=== PATIENT | female | born 1950 | race African-American/Black ===

== ENCOUNTER 2016-10-11 05:39 | Outpatient (CLI) | payer MEDICARE, MEDICAID ==
[~2016-10-11] VITALS: Ht 176.5 cm; Wt 69.9 kg
[~2016-10-11 05:39] MED LIST: ALN70T PO; AML5T; AMLO10TA82 PO; ASP81TEC PO; ASPIRIN; CHANTIX; CLCX200C; FEXO60TA PO; HCT25T; HCT25T PO; KCL10CCR; LNS30CCR; LORA10TA7 PO; MELO-195 PO; MNTL10T PO; NFPRILOC40 PO; POTA10CA43 PO; SMV20T PO; TRAM50TA2 PO; ZLP10T PO; ZLP5T PO
[2016-10-11] MEDS ORDERED: METO50TA2 PO (11:01)
[2016-10-11] MEDS ORDERED: METH2.5T PO (11:01)
[2016-10-11] MEDS ORDERED: BENA20TA2 PO (11:01)
[2016-10-11] MEDS ORDERED: BACL10TA PO (11:01)
== END 2016-10-11 11:03 ==
LOC: PREOP 05:39
PROVIDERS: ATTEND Internal Medicine
DX: Z01.818 Encounter for other preprocedural examination (principal); Z12.11 Encounter for screening for malignant neoplasm of colon

== ENCOUNTER 2016-10-13 06:34 | Day surgery (SDC) | payer MEDICARE, MEDICAID ==
[~2016-10-13] VITALS: Ht 176.5 cm; Wt 69.9 kg
[~2016-10-13 06:34] MED LIST changes: +BACL10TA PO; +BENA20TA2 PO; +METH2.5T PO; +METO50TA2 PO
--- OUTSIDE RECORDS SUMMARY | 2016-10-13 06:37 | XMS REPORT | Continuity of Care Document ---
Author Author [facility] Organization [facility] Address Unknown Phone Unavailable Allergies Active Description Code Type Severity Reaction Onset Reported/Identified Relationship to Patient Clinical Status Yes codeine [id number] Drug Allergy Mild CHEST PAIN 09/15/2008 Yes hydrocodone [id number] Drug Allergy Unknown causes elevated 10/11/2016 Medications Problems Date Dx Coded Attending Type Code Diagnosis Diagnosed By 10/26/2010 Ot 726.19 10/26/2010 Ot 727.61 10/26/2010 Ot 727.89 10/26/2010 Ot 733.92 11/23/2010 Ot 577.0 11/23/2010 Ot 577.8 11/23/2010 Ot 787.91 11/23/2010 Ot 789.00 09/24/2011 Ot 577.0 ACUTE PANCREATITIS 09/24/2011 Ot 577.8 PANCREATIC DISEASE NEC 09/24/2011 Ot 787.91 DIARRHEA 09/24/2011 Ot 789.00 ABDOMINAL PAIN, UNSPECIFIED SITE 12/30/2012 REYNA BILLINGS MD Ot 272.4 HYPERLIPIDEMIA NEC/NOS 12/30/2012 REYNA BILLINGS MD Ot 288.50 LEUKOCYTOPENIA, UNSPECIFIED 12/30/2012 REYNA BILLINGS MD Ot 401.9 HYPERTENSION NOS 12/30/2012 REYNA BILLINGS MD Ot 716.90 ARTHROPATHY NOS-UNSPEC 12/30/2012 REYNA BILLINGS MD Ot 724.5 BACKACHE NOS 12/30/2012 REYNA BILLINGS MD Ot V58.69 OTH MED,LT,CURRENT USE 06/05/2013 ALLIE FERRER MD Ot 401.9 HYPERTENSION NOS 06/05/2013 ALLIE FERRER MD Ot 724.1 PAIN IN THORACIC SPINE 06/05/2013 ALLIE FERRER MD Ot 786.50 CHEST PAIN NOS 06/05/2013 ALLIE FERRER MD Ot V58.69 OTH MED,LT,CURRENT USE 07/15/2013 ELLA GAY FACC, ALI FACP CCDS Ot 272.0 PURE HYPERCHOLESTEROLEM 07/15/2013 ELLA GAY FAC, ALI FACP CCDS Ot 401.9 HYPERTENSION NOS 07/15/2013 ELLA GAY FAC, [facility] FACP CCDS Ot 414.01 CORONARY ATHEROSCLEROSIS OF [place] CORON 07/15/2013 ELLA GAY FAC, ALI FACP CCDS Ot 414.4 CORONARY ATHEROSCLEROSIS DUE TO [place] 07/15/2013 ELLA GAY [facility] CCDS Ot 786.50 CHEST PAIN NOS 07/15/2013 ELLA GAY [facility], [facility] CCDS Ot V58.69 OT MED,LT,CURRENT USE 01/12/2015 Ot V15.89 01/12/2015 Ot V76.11 01/12/2015 Ot 733.90 01/12/2015 Ot V82.81 01/12/2015 Ot 599.0 01/12/2015 Ot 719.41 01/12/2015 Ot 786.2 01/12/2015 Ot 727.61 01/12/2015 Ot V72.81 01/12/2015 Ot V74.8 01/12/2015 Ot 433.10 01/12/2015 Ot V76.12 01/12/2015 Ot 722.52 01/12/2015 Ot 789.01 01/12/2015 Ot 722.52 01/12/2015 Ot 719.45 01/12/2015 Ot 729.5 01/12/2015 Ot V45.89 01/12/2015 JONAH GAY, OCTAVIA Braun Ot V76.12 01/12/2015 JONAH GAY, OCTAVIA Braun Ot 719.45 01/12/2015 Ot 288.50 01/12/2015 JONAH GAY, OCTAVIA Braun Ot 344.40 01/12/2015 JODIE GAY, CLARE Ot 413.9 01/12/2015 JODIE GAY, CLARE Ot 785.0 01/12/2015 JODIE GAY, CLARE Ot 786.59 01/12/2015 JODIE GAY, CLARE Ot 794.31 01/12/2015 OCTAVIA MCKENZIE MD Ot V76.12 02/22/2015 OCTAVIA MCKENZIE MD Ot G45.9 03/02/2015 OCTAVIA MCKENZIE MD Ot G45.9 10/11/2016 Ot 433.10 CAROTID ARTERY OCCLUSION W O CEREBRAL IN 10/11/2016 Ot V76.12 OTH SCREEN MAMMO-MALIGN NEOPLASM OF [place] 10/11/2016 Ot 722.52 LUMB/LUMBOSAC DISC DEGEN 10/11/2016 Ot 789.01 ABDOMINAL PAIN, RIGHT UPPER QUADRANT 10/11/2016 Ot 722.52 LUMB/LUMBOSAC DISC DEGEN 10/11/2016 Ot 719.45 JOINT PAIN-PELVIS 10/11/2016 Ot 729.5 PAIN IN LIMB 10/11/2016 Ot V45.89 POSTSURGICAL STATES NEC 10/11/2016 OCTAVIA MCKENZIE MD Ot V76.12 OTH SCREEN MAMMO-MALIGN NEOPLASM OF [place] 10/11/2016 OCTAVIA MCKENZIE MD Ot 719.45 JOINT PAIN-PELVIS 10/11/2016 Ot 288.50 LEUKOCYTOPENIA, UNSPECIFIED 10/11/2016 OCTAVIA MCKENZIE MD Ot 344.40 MONOPLEGIA UPPER LIMB AFFECTING UNSPECIF 10/11/2016 CLARE FELICIANO MD Ot 413.9 ANGINA PECTORIS NEC/NOS 10/11/2016 CLARE FELICIANO MD Ot 785.0 TACHYCARDIA NOS 10/11/2016 CLARE FELICIANO MD Ot 786.59 CHEST PAIN NEC 10/11/2016 CLARE FELICIANO MD Ot 794.31 ABNORM ELECTROCARDIOGRAM 10/11/2016 OCTAVIA MCKENZIE MD Ot V76.12 OTH SCREEN MAMMO-MALIGN NEOPLASM OF [place] 10/11/2016 OCTAVIA MCKENZIE MD Ot G45.9 TRANSIENT CEREBRAL ISCHEMIC ATTACK, UNSP 10/11/2016 OCTAVIA MCKENZIE MD Ot Z12.31 ENCNTR SCREEN MAMMOGRAM FOR MALIGNANT NE 10/11/2016 Ot 288.50 LEUKOCYTOPENIA, UNSPECIFIED 10/11/2016 OCTAVIA MCKENZIE MD Ot Z12.31 ENCNTR SCREEN MAMMOGRAM FOR MALIGNANT NE Procedures Results Encounters ACCT No. Visit Date/Time Discharge Status Pt. Type Provider Facility Loc./Unit Complaint [id number] 10/11/2016 05:39:00 2016 11:03:00 DIS Outpatient PIERRE EUBANKS MD [facility] PREOP SCREENING [id number] 01/12/2015 10:30:00 2014 23:59:59 CLS Outpatient OCTAVIA MCKENZIE MD [facility] RAD TRANSIENT CEREBRAL ISCHEMIA [id number] 12/02/2013 08:52:00 2013 23:59:59 CLS Outpatient OCTAVIA MCKENZIE MD [facility] RAD SCREENING [id number] 07/15/2013 06:44:00 2013 14:00:00 DIS Outpatient ELLA GAY FACC, EFFIE MEDINA CCDS [facility] CATH CP,POS STRESS TEST,HTN,HLP [id number] 06/18/2013 08:57:00 2013 23:59:59 CLS Outpatient CLARE FELICIANO MD [facility] CARD ANGINA,ABN EKG [id number] 06/05/2013 18:35:00 2013 20:12:00 DIS Emergency ALLIE FERRER MD [facility] ER DEHYDRATION [id number] 04/18/2013 08:16:00 2013 23:59:59 CLS Outpatient OCTAVIA MCKENZIE MD [facility] RAD MONOPARESIS-ARM [id number] 10/01/2012 13:56:00 2012 00:01:00 DIS Outpatient REYNA BILLINGS MD [facility] ONC [id number] 11/22/2012 09:01:00 2012 23:59:59 CLS Outpatient OCTAVIA MCKENZIE MD [facility] RAD PAIN IN JOINT [id number] 11/18/2012 09:12:00 2012 23:59:59 CLS Outpatient OCTAVIA MCKENZIE MD [facility] RAD SCREENING [id number] 10/18/2016 10:15:00 PEN Preadmit OCTAVIA MCKENZIE MD [facility] RAD SCREENING [id number] 10/13/2016 08:00:00 PEN Preadmit PIERRE EUBANKS MD [facility] ENDO SCREENING [id number] 01/12/2015 10:30:00 Document Registration [id number] 01/12/2015 10:30:00 Document Registration [id number] 01/12/2015 10:29:00 Document Registration [id number] 01/12/2015 10:29:00 Document Registration [id number] 12/31/2012 00:00:00 Document Registration [id number] 10/19/2011 10:28:00 Document Registration [id number] 10/11/2011 09:36:00 Document Registration [id number] 06/27/2011 08:38:00 Document Registration [id number] 05/04/2011 10:47:00 Document Registration [id number] 10/20/2010 08:59:00 Document Registration [id number] 08/25/2010 11:49:00 Document Registration [id number] 12/16/2009 10:03:00 Document Registration
[2016-10-13] MEDS ORDERED: 1/2 NS IV SOLUTION 1,000 ML IV STA (07:14)
[2016-10-13] MEDS ORDERED: fentaNYL INJECTION 100 MCG/2 ML AMP IVP PRN (07:15)
[2016-10-13] MEDS ORDERED: LIDOCAINE JELLY 2% (XYLOCAINE) 5 ML TUBE MM PRN (07:15)
[2016-10-13] MEDS ORDERED: D5 LR IV SOLUTION 0 ML IV ONE (07:15)
[2016-10-13] MEDS ORDERED: MIDAZOLAM 2 MG/2 ML (VERSED) VIAL IVP PRN (07:15)
[2016-10-13 07:30] VITALS: BP 184/98
[2016-10-13] MEDS ORDERED: 1/2 NS IV SOLUTION 1,000 ML IV ONE (07:31)
[2016-10-13] MEDS ORDERED: MIDAZOLAM 2 MG/2 ML (VERSED) VIAL ONE (07:43)
[2016-10-13] MEDS ORDERED: LIDOCAINE JELLY 2% (XYLOCAINE) 5 ML TUBE ONE (07:43)
[2016-10-13] MEDS ORDERED: fentaNYL INJECTION 100 MCG/2 ML AMP ONE (07:43)
--- NOTE | 2016-10-13 07:50 | Pre-Op Note & Conscious Sedat ---
Pre-Operative Progress Note H&P Reviewed The H&P was reviewed, patient examined and no changes noted. Date H&P Reviewed: Oct 13, 2016 Time H&P Reviewed: 07:50 Conscious Sedation Pre-Proced ASA Class: 2 Airway Mallampati Classification: ([place] appropriate class) I. II. III, IV Lungs Heart ASA score ASA 1: a normal healthy patient ASA 2: a patient with a mild systemic disease (mid diabetes, controlled hypertension, obesity ASA 3: a patient with a severe systemic disease that limits activity (angina , COPD, prior Myocardial infarction) ASA 4: a patient with an incapacitating disease that is a constant threat to life (CHF, renal failure) ASA 5: a moribund patient not expected to survive 24 hrs. (ruptured aneurysm) ASA 6: a declared brain patient whose organs are being harvested. For emergent operations, add the letter E after the classification Grade 2 Sedation Plan: Analgesia, Amnesia, Plan communicated to team members, Discussed options with patient/fam, Discussed risks with patient/fam Note The patient is an appropriate candidate to undergo the planned procedure, sedation, and anesthesia. The patient immediately re-assessed prior to indication. PIERRE EUBANKS MD Oct 13, 2016 07:50
[2016-10-13 08:30] VITALS: BP 157/84
[2016-10-13 09:00] VITALS: BP 179/91
--- NOTE | 2016-10-13 10:43 | HISTORY AND PHYSICAL ---
DATE OF ADMISSION: 10/13/2016 DICTATING PHYSICIAN: Dr. Velázquez REFERRING PHYSICIAN: Dr. Draper. INDICATION FOR THE PROCEDURE: Screening colonoscopy. Mrs. Keane is a 65-year-old white female, reporting that she did have one other colonoscopy over [address] Tejada. She does not recall any problems at that time. She does have some intermittent nausea with weight loss with reported history of bile duct stones apparently requiring ERCP and extraction sometime after having cholecystectomy several years ago. She denies history of peptic ulcer disease. She denies any bowel habit change and denies abdominal pain. PAST SURGICAL HISTORY: 1. Cholecystectomy. 2. Herniorrhaphy. 3. Right rotator cuff tear repair in [address] Mancini. 4. She has a past history of hypertension and underwent cardiac catheterization in 2013 that revealed only mild coronary disease and no other significant problems. 5. She also has a history of hyperlipidemia. MEDICATIONS: On admission include: 1. Dicyclomine 20 mg q.6 hours p.r.n. 2. fluticasone nasal spray 2 sprays both sides daily 3. Hydrochlorothiazide 25 mg daily 4. Lomotil 2.5 mg q.a.m. and p.r.n. diarrhea 5. Meloxicam 15 mg daily 6. methotrexate 4 tablets by mouth weekly 7. metoprolol 50 mg daily 8. omeprazole 40 mg daily 9. Potassium 10 mEq daily 10. Simvastatin 20 mg at h.s. 11. zolpidem 5 mg at bedtime p.r.n. insomnia PHYSICAL EXAMINATION: Reveals a white female, appears to be in no acute distress. VITAL SIGNS: Blood pressure 150/70, heart rate 66 and regular. HEENT EXAMINATION: Unremarkable. She is Mallampati class II oropharyngeal configuration. Pharynx reveals no evidence for exudate or erythema. Posterior pharynx. NECK: Reveals no JVD, adenopathy or bruits. CHEST: Clear. CV: Reveals a regular rate and rhythm without murmur, S3 or S4. ABDOMEN: Soft, supple without masses, organomegaly or tenderness. EXTREMITIES: Reveal no cyanosis, clubbing, or edema. ASSESSMENT: The patient is set-up for a screening colonoscopy on the 10/06/2016. Prep instructions were given and questions were answered. The patient was advised to hold meloxicam for at least 48 hours prior to the procedure. I thank you for the referral of this pleasant lady. Sincerely, Job ID: [id number] Dictated Date: 10/04/2016 08:41:00 Digester Operator Helper Date: 10/04/2016 11:33:59/tiffanie MORRISSEY
--- NOTE | 2016-10-13 17:48 | OPERATIVE REPORT ---
PROCEDURE PHYSICIAN: PIERRE EUBANKS DATE OF PROCEDURE: 10/13/2016 COLONOSCOPY SUMMARY: INDICATION FOR THE PROCEDURE: Screening colonoscopy. PROCEDURE: The patient was placed in the left lateral decubitus position. Prior to undergoing colonoscopy, digital rectal evaluation was performed. Anal sphincter tone was normal. The perianal reflex was intact. No abnormalities were noted to digital inspection of the anal canal or distal rectal vault. The colonoscope was then inserted into the rectum and under visualization, advanced to cecum. The cecum was identified by identification of the ileocecal valve the cecal strap. Photographic documentation was obtained. Careful inspection was made as colonoscope was withdrawn. FINDINGS: There was no evidence for internal or external hemorrhoids and the rectum was unremarkable. Several small sigmoid diverticulum were present. No other sigmoid colonic abnormalities were appreciated. There is no evidence for diverticulitis. The descending colon and splenic flexure were unremarkable. Present in the mid transverse colon was diminutive hyperplastic appearing polyp. It was biopsied and ablated, and submitted as for histopathology with no blood loss. The remainder of the transverse colon, hepatic flexure, the ascending colon and cecum were normal. ASSESSMENT: 1. Mild diverticular disease confined to the sigmoid colon was present, without evidence for diverticulitis. 2. One diminutive hyperplastic appearing polyp was removed from the transverse colon. No other abnormalities were noted. 3. As the patient reports no family history for colon cancer, would advocate consideration for repeat screening colonoscopy in 10 years as long as there are no surprises on histopathology report. I thank you for the referral of this pleasant lady. Sincerely, Job ID: [id number] Dictated Date: 10/13/2016 10:20:53 Assembler Tractor Date: 10/13/2016 17:42:50 / tiffanie
== END 2016-10-13 10:00 | disposition home or self-care (01) ==
LOC: ENDO 06:34
PROVIDERS: ATTEND Internal Medicine
DX: Z12.11 Encounter for screening for malignant neoplasm of colon (principal); K63.5 Polyp of colon; K57.30 Diverticulosis of large intestine without perforation or abscess without bleeding; I25.10 Atherosclerotic heart disease of native coronary artery without angina pectoris; I10 Essential (primary) hypertension; E78.5 Hyperlipidemia, unspecified; Z79.899 Other long term (current) drug therapy

== ENCOUNTER → 2016-10-23 | Outpatient (CLI) | payer MEDICARE, MEDICAID | LOC: RAD 08:55 | DX: Z12.31 Encounter for screening mammogram for malignant neoplasm of breast (principal) | CPT/HCPCS: 77067 ==

== ENCOUNTER → 2017-04-27 | Outpatient (CLI) | payer MEDICARE, MEDICAID ==
[~2017-04-27] MED LIST changes: +IOHEXOL 350 MG/ML 100 ML (OMNIPAQUE 350) VIAL IV ONE; +METO50TA15 PO; -METO50TA2 PO; +NS 100 ML (IVPB) BAG IV ONE
--- NOTE | 2017-04-27 10:02 | Diagnostic Imaging Report ---
PROCEDURE: CT abdomen and pelvis with contrast. TECHNIQUE: Multiple contiguous axial images were obtained through the abdomen and pelvis after administration of intravenous contrast. INDICATION: Left lower quadrant abdominal pain. COMPARISON: 10/11/2011 FINDINGS: Included portions of the lung bases show small micronodule in the lateral right base. This however is stable compared to 10/11/2011. CT ABDOMEN: Small bowel loops are nondistended. Normal appendix cannot be adequately identified, but there is no pericecal inflammation. The kidneys, adrenal glands, spleen, pancreas, and liver have a normal CT appearance. There is no loculated fluid collection, free fluid, nor free air within the abdomen. No abnormal mesenteric or retroperitoneal adenopathy is seen. There is mild calcified aortic atherosclerosis. Note is made of bulky calcifications at the origins of bilateral renal arteries. Bony structures show no acute abnormalities. CT PELVIS: Urinary bladder is grossly unremarkable. There is no loculated fluid collection, free fluid, or free air within the pelvis. No abnormal lymph nodes are identified. Bony structures show no acute abnormalities. Postsurgical changes of prior lumbosacral fusion are noted. IMPRESSION: No acute abnormalities within the abdomen or pelvis. Dictated by: Dictated on workstation # [id number]
== END ==
LOC: RAD 08:39
DX: R10.32 Left lower quadrant pain (principal)
CPT/HCPCS: 74177

== ENCOUNTER → 2017-05-21 | Outpatient (CLI) | payer MEDICARE, MEDICAID ==
[~2017-05-21] MED LIST changes: -IOHEXOL 350 MG/ML 100 ML (OMNIPAQUE 350) VIAL IV ONE; -NS 100 ML (IVPB) BAG IV ONE
--- NOTE | 2017-05-21 09:36 | Diagnostic Imaging Report ---
PROCEDURE: MRI lumbar spine. TECHNIQUE: Multiplanar, multisequence MRI of the lumbar spine was performed without contrast. INDICATION: Lower back pain with left leg pain. History of previous lumbar spinal surgery. COMPARISON: 10/19/2011. FINDINGS: Since the previous exam, there has been interval left-sided posterior fusion of L4 through S1. Anterior fusion hardware is also noted. Evaluation of the integrity of the hardware is suboptimal given MR modality and susceptibility artifact, but AP static alignment is maintained. Intervertebral disc spacer material is also noted at L4-L5 and L5-S1 and appears to be appropriately positioned. Evaluation of static alignment also demonstrates slight dextroscoliotic curvature epicentered at the L4 level. Vertebral body heights are maintained. There is moderate size Schmorl's node involving the inferior endplate of L3. Marrow signal is unremarkable. No acute fractures are seen. The visualized portions of distal cord are unremarkable. Conus terminates at approximately the T12-L1 level. No abnormal intrathecal filling defects are seen. Pre-and paravertebral soft tissue structures are unremarkable. Axial images demonstrate following: T12-L1: There is no large disc bulge or focal protrusion. There is no significant spinal canal or neuroforaminal stenosis. L1-L2: There is no large disc bulge or focal protrusion. There is no significant spinal canal or neuroforaminal stenosis. L2-L3: There is slight broad-based posterior disc bulge, eccentric to the left. As a result, there is minimal narrowing of the left neural foramen. Spinal canal and right neural foramen are unremarkable. L3-L4: There is broad-based posterior disc bulge and bilateral ligamentum flavum laxity and facet arthropathy. This has progressed since the previous exam. As a result, there is wfqonghw-wv-qqvvei spinal canal stenosis. There is also moderate narrowing of the bilateral neural foramina. L4-L5: There are posterior disc bulges which results in xgdg-co-ueoexqje narrowing of the bilateral neural foramen. Spinal canal however is unremarkable. L5-S1: There is no large disc bulge or focal protrusion. There is no significant spinal canal or neuroforaminal stenosis. IMPRESSION: 1. Multilevel degenerative changes of the lumbar spine, greatest at the L3-L4 level resulting in scwplfdg-jf-hbbyvq spinal canal stenosis. 2. Postsurgical changes of previous anterior and posterior fusion as described above. Again, evaluation of integrity of the hardware is suboptimal given MR modality and susceptibility artifact, but AP static alignment is maintained. 3. No evidence of acute fracture or dislocation of lumbar spine. Dictated by: Dictated on workstation # [id number]
== END ==
LOC: RAD 07:52
PROVIDERS: ATTEND Orthopaedic Surgery Orthopaedic Surgery of the Spine
DX: M48.061 Spinal stenosis, lumbar region without neurogenic claudication (principal); M51.26 Other intervertebral disc displacement, lumbar region; M47.816 Spondylosis without myelopathy or radiculopathy, lumbar region; M46.86 Other specified inflammatory spondylopathies, lumbar region; Z98.1 Arthrodesis status
CPT/HCPCS: 72148

== ENCOUNTER 2017-07-31 09:04 | Outpatient (CLI) | payer MEDICARE, MEDICAID ==
[~2017-07-31] VITALS: Ht 176.5 cm; Wt 75.0 kg
[2017-07-31] MEDS ORDERED: ZOLP5TAB7 PO (09:23)
[2017-07-31] MEDS ORDERED: HYDR25TA4 PO (09:23)
[2017-07-31] MEDS ORDERED: SIMV20TA3 PO (09:23)
[2017-07-31] MEDS ORDERED: OMEP40CA36 PO (09:23)
[2017-07-31] MEDS ORDERED: LORA10TA7 PO (09:23)
[2017-07-31] MEDS ORDERED: ASPI-999 PO (09:23)
[2017-07-31] MEDS ORDERED: POTA10CA43 PO (09:23)
[2017-07-31] MEDS ORDERED: MELO15TA39 PO (09:23)
[2017-07-31] MEDS ORDERED: MONT10TA24 PO (09:23)
[2017-07-31 09:26] VITALS: BP 149/87
[2017-07-31 10:03] LABS: BASOPHILS % (AUTO) 0 % (0-10); EOSINOPHILS # (AUTO) 0.1 10^3/uL (0.0-0.3); EOSINOPHILS % (AUTO) 5 % (0-10); HEMATOCRIT 42 % (35-52); HEMOGLOBIN 13.4 G/DL (11.5-16.0); LYMPHOCYTES % (AUTO) 41 % (12-44); MEAN CORPUSCULAR HEMOGLOBIN 29 PG (25-34); MEAN CORPUSCULAR HGB CONC 32 G/DL (32-36); MEAN CORPUSCULAR VOLUME 90 FL (80-99); MEAN PLATELET VOLUME 9.8 FL (7.4-10.4); MONOCYTES # (AUTO) 0.4 X 10^3 (0.0-1.0); MONOCYTES % (AUTO) 15 % (0-12); NEUTROPHILS % (AUTO) 39 % (42-75); PLATELET COUNT 229 10^3/uL (130-400); RED BLOOD COUNT 4.67 10^6/uL (4.35-5.85); RED CELL DISTRIBUTION WIDTH 14.6 % (10.0-14.5); WHITE BLOOD COUNT 2.5 10^3/uL (4.3-11.0)
[2017-07-31 10:23] LABS: BUN/CREATININE RATIO 19; CALCIUM 9.4 MG/DL (8.5-10.1); CARBON DIOXIDE 28 MMOL/L (21-32); CHLORIDE 105 MMOL/L (98-107); CREATININE SERUM 0.79 MG/DL (0.60-1.30); GFR ESTIMATED > 60; GLUCOSE 75 MG/DL (70-105); POTASSIUM 3.9 MMOL/L (3.6-5.0); SODIUM 140 MMOL/L (135-145)
[2017-07-31] MEDS ORDERED: METH2.5T PO (12:44)
[2017-07-31] MEDS ORDERED: FLUT16SP22 NS (12:44)
[2017-07-31] MEDS ORDERED: POTA10TA6 PO (12:44)
[2017-07-31] MEDS ORDERED: ASPI-983 PO (12:44)
[2017-07-31] MEDS ORDERED: METO-395 PO (12:45)
[2017-07-31] MEDS ORDERED: BNZ40T PO (12:45)
[2017-07-31] MEDS ORDERED: METO-370 PO (12:45)
[2017-08-08] MEDS ORDERED: BACL10TA PO (06:34)
[2017-08-08] MEDS ORDERED: OXYC-471 PO (06:34)
== END 2017-07-31 12:12 | disposition home or self-care (01) ==
LOC: PREOP 09:04
PROVIDERS: ATTEND Orthopaedic Surgery Orthopaedic Surgery of the Spine
DX: Z01.812 Encounter for preprocedural laboratory examination (principal); I10 Essential (primary) hypertension; Z11.2 Encounter for screening for other bacterial diseases; Z22.322 Carrier or suspected carrier of Methicillin resistant Staphylococcus aureus
CPT/HCPCS: 36415; 80048; 85025; 86850; 86900; 86901; 87081

== ENCOUNTER → 2017-11-08 | Outpatient (CLI) | payer MEDICARE, MEDICAID ==
[~2017-11-08] MED LIST changes: +ASPI-983 PO; +ASPI-999 PO; -BENA20TA2 PO; +BENA20TA7 PO; +BENA40TA5 PO; +FLUT16SP22 NS; +HYDR25TA4 PO; +MELO15TA39 PO; -METH2.5T PO; +METO-370 PO; +METO-395 PO; +MONT10TA24 PO; +MTX2.5T PO; +OMEP40CA36 PO; +OXYC-471 PO; +POTA10TA6 PO; +SIMV20TA3 PO; +ZOLP5TAB7 PO
--- NOTE | 2017-11-08 11:04 | Diagnostic Imaging Report ---
PROCEDURE: US Non-ob pelvis comp/trans. TECHNIQUE: Multiple realtime grayscale images were obtained of the pelvis in various projections endovaginally. Transabdominal imaging was also performed. INDICATION: Left-sided pelvic pain. FINDINGS: The uterus measures 4.7 x 3.4 x 2.7 cm. The endometrium is 4 mm in thickness. No uterine mass is detected. The ovaries were not visualized. No adnexal mass or free fluid is seen. IMPRESSION: Nonvisualized ovaries. The study is otherwise unremarkable. Dictated by: Dictated on workstation # [id number]
== END ==
LOC: RAD 10:01
PROVIDERS: ATTEND Surgery
DX: G89.18 Other acute postprocedural pain (principal)
CPT/HCPCS: 76830; 76856

== ENCOUNTER → 2018-02-11 | Outpatient (CLI) | payer MEDICARE, MEDICAID ==
--- NOTE | 2018-02-11 08:47 | Diagnostic Imaging Report ---
PROCEDURE: CT lumbar spine without contrast. TECHNIQUE: Multiple contiguous axial images were obtained through the lumbar spine without the use of intravenous contrast. Sagittal and coronal reformations were then performed. INDICATION: Back pain. COMPARISON: Lumbar spine radiographs 08/07/2017. FINDINGS: There are 5 lumbar type vertebral bodies. Grade 1 anterolisthesis of L3 on L4. Again seen is postoperative finding of a left jasmin and pedicle screw fixation at L4-S1, right lateral fusion with interbody device at L3-L4 and anterior interbody fusions at L4-L5 and L5-S1. Hardware components are intact. There appears to be mature solid fusion at the L4-L5 and L5-S1 levels. This is not definitely occurred at the L3-L4 level. There is erosion in the inferior endplate of L3 which reaches the lateral fixation screw. No high-grade spinal canal narrowing is evident on this noncontrast exam. No fractures. Disc space height loss and osteophytic ridging at L4-L5 results in ropgfuso-cp-hiwxfbld bilateral neuroforaminal narrowing. No other substantial neuroforaminal narrowing. Mild atherosclerotic calcifications. The visualized abdominal and pelvic contents are otherwise unremarkable. IMPRESSION: Stable postoperative findings of left jasmin and pedicle screw fixation at L4-S1, right lateral fusion with interbody device at L3-L4 and anterior interbody fusions at L4-S1. There is yet to be solid osseous fusion at L3-L4 level with erosion in the inferior endplate of L3 reaching the fixation screw. There appears to be mature fusion at the L4-S1 levels. Dictated by: Dictated on workstation # [id number]
== END ==
LOC: RAD 07:45
PROVIDERS: ATTEND Orthopaedic Surgery Orthopaedic Surgery of the Spine
DX: M54.5 Low back pain (principal); Z98.1 Arthrodesis status
CPT/HCPCS: 72131

== ENCOUNTER → 2018-04-03 | Outpatient (CLI) | payer MEDICARE, MEDICAID ==
--- NOTE | 2018-04-03 16:45 | Diagnostic Imaging Report ---
PROCEDURE: US left lower extremity venous. TECHNIQUE: Multiple Real-time grayscale images were obtained over the left lower extremity in various projections. Additional duplex Doppler and color Doppler images were also obtained. INDICATION: Localized edema in the left lower extremity. FINDINGS: The left lower extremity venous Doppler demonstrates no evidence of a DVT. No fluid collections are identified. The waveforms appear normal. IMPRESSION: Negative left lower extremity venous Doppler. Dictated by: Dictated on workstation # [id number]
== END ==
LOC: RAD 16:05
DX: R60.0 Localized edema (principal)

== ENCOUNTER → 2018-04-17 | Outpatient (CLI) | payer MEDICARE, MEDICAID ==
[~2018-04-17] MED LIST changes: +CATHETER FLUSH 10 ML SYR IV PRN; +IOHEXOL 350 MG/ML 100 ML (OMNIPAQUE 350) VIAL IV ONE; +NS 100 ML (IVPB) BAG IV ONE; +RECEIVED CONTRAST (Hold Metformin) IV SCH
[2018-04-17 11:22] LABS: ALANINE AMINOTRANSFERASE 44 U/L (0-55); ALBUMIN 4.2 GM/DL (3.2-4.5); ALKALINE PHOSPHATASE 86 U/L (40-136); BILIRUBIN,TOTAL 0.5 MG/DL (0.1-1.0); BUN/CREATININE RATIO 22; CALCIUM 9.5 MG/DL (8.5-10.1); CARBON DIOXIDE 28 MMOL/L (21-32); CHLORIDE 103 MMOL/L (98-107); CREATININE SERUM 0.85 MG/DL (0.60-1.30); GFR ESTIMATED > 60; GLUCOSE 89 MG/DL (70-105); POTASSIUM 3.7 MMOL/L (3.6-5.0); SODIUM 141 MMOL/L (135-145); TOTAL PROTEIN 6.7 GM/DL (6.4-8.2)
--- NOTE | 2018-04-17 12:06 | Diagnostic Imaging Report ---
PROCEDURE: CT abdomen and pelvis with contrast. TECHNIQUE: Multiple contiguous axial images were obtained through the abdomen and pelvis after administration of intravenous contrast. INDICATION: Left lower quadrant pain and left leg swelling. COMPARISON: Comparison is made with prior CT from 04/27/2017. FINDINGS: Imaging through the lung bases shows minimal scarring or atelectasis in left lower lobe. No discrete liver mass is identified. The gallbladder is not visualized and may be surgically absent. No biliary duct dilatation is seen. The pancreas and spleen are unremarkable. No adrenal mass is detected. The kidneys are unremarkable. The aorta is non-aneurysmal. No central retroperitoneal or mesenteric lymphadenopathy is detected. Small and large bowel loops are normal caliber. There is no evidence of obstruction. There are diverticula of the sigmoid colon but no evidence of acute diverticulitis. There is no ascites. The uterus and bladder are unremarkable. No definite pelvic lymphadenopathy is seen. Postsurgical changes in the lower lumbar spine are noted. IMPRESSION: Essentially unremarkable CT of the abdomen and pelvis. No acute features detected. Dictated by: Dictated on workstation # [id number]
== END ==
LOC: RAD 09:59
DX: R10.84 Generalized abdominal pain (principal); R10.814 Left lower quadrant abdominal tenderness
CPT/HCPCS: 36415; 74177; 80053

== ENCOUNTER → 2018-10-15 | Outpatient (CLI) | payer MEDICARE, MEDICAID ==
[~2018-10-15] MED LIST changes: -CATHETER FLUSH 10 ML SYR IV PRN; -IOHEXOL 350 MG/ML 100 ML (OMNIPAQUE 350) VIAL IV ONE; -NS 100 ML (IVPB) BAG IV ONE; -RECEIVED CONTRAST (Hold Metformin) IV SCH
--- NOTE | 2018-10-15 10:28 | Diagnostic Imaging Report ---
INDICATION: Chronic left hip pain, no injury. TECHNIQUE: 2 views of the left hip. CORRELATION STUDY: None FINDINGS: Images of the hip demonstrate no evidence for acute fracture. Alignment is anatomic. The femoral head acetabular relationship is unremarkable. The bony trabecular pattern is intact. IMPRESSION: 1. Unremarkable examination of the left hip. Dictated by: Dictated on workstation # [id number]
== END ==
LOC: RAD 09:53
DX: G89.29 Other chronic pain (principal); M25.552 Pain in left hip
CPT/HCPCS: 73502

== ENCOUNTER → 2019-01-03 | Outpatient (CLI) | payer MEDICARE, MEDICAID ==
--- NOTE | 2019-01-03 13:07 | Diagnostic Imaging Report ---
INDICATION: Maxillary sinusitis. COMPARISON: MR brain dated 04/18/2013. FINDINGS: Kevin, Capone, and lateral radiographic views of the paranasal sinuses were obtained. Maxillary sinuses have an unremarkable appearance. No abnormal air-fluid levels are seen. There does appear to be filling defect within the right frontal sinus measuring approximately 2 cm. This is felt to correspond to mucosal retention cyst versus polyp seen on previous MRI. Left frontal sinus is unremarkable. Ethmoid air cells are within normal limits as well. Sphenoid sinuses are unremarkable on the lateral view. No acute osseous abnormality is seen. No unexpected radiopaque foreign bodies are identified. IMPRESSION: 1. Probable mucosal retention cyst versus polyp within the right frontal sinus. 2. Otherwise, unremarkable radiographic exam of the paranasal sinuses. Dictated by: Dictated on workstation # [id number]
== END ==
LOC: RAD 09:54
DX: J01.01 Acute recurrent maxillary sinusitis (principal)
CPT/HCPCS: 70220

== ENCOUNTER → 2019-02-10 | Outpatient (CLI) | payer MEDICARE, MEDICAID ==
--- NOTE | 2019-02-10 12:23 | Diagnostic Imaging Report ---
INDICATION: Routine screening. Comparison is made with prior mammogram from 10/23/2016 and 12/02/2013. 2-D and 3-D bilateral screening mammography was performed with CAD. Both breasts are heterogeneously dense, limiting the sensitivity of mammography. The parenchymal pattern is stable. A biopsy clip in the upper outer right breast is again noted. No mass or malignant appearing microcalcifications are seen. Axillae are unremarkable. IMPRESSION: BI-RADS Category 2 No mammographic features suspicious for malignancy are identified. ACR BI-RADS Category 2: Benign findings. Result letter will be mailed to the patient. Note: At least 10% of breast cancer is not imaged by mammography. Dictated by: Dictated on workstation # [id number]
== END ==
LOC: RAD 09:32
DX: Z12.31 Encounter for screening mammogram for malignant neoplasm of breast (principal)
CPT/HCPCS: 77067

== ENCOUNTER → 2019-09-15 | Outpatient (CLI) | payer MEDICARE, MEDICAID ==
[~2019-09-15] MED LIST changes: -METO-370 PO; -METO-395 PO; +METO50TA7 PO; -MONT10TA24 PO; +MONT10TA26 PO; +MTP100TCR PO; +OMEP40CA27 PO; -OMEP40CA36 PO; +SIMV20TA26 PO; -SIMV20TA3 PO
== END ==
LOC: CARD 10:39
PROVIDERS: ATTEND Internal Medicine Cardiovascular Disease
DX: I25.10 Atherosclerotic heart disease of native coronary artery without angina pectoris (principal); E78.5 Hyperlipidemia, unspecified; I10 Essential (primary) hypertension; M79.89 Other specified soft tissue disorders
CPT/HCPCS: 93306

== ENCOUNTER → 2019-09-16 | Outpatient (CLI) | payer MEDICARE, MEDICAID ==
[~2019-09-16] VITALS: Ht 173 cm; Wt 80.0 kg
[~2019-09-16] MED LIST changes: +CATHETER FLUSH 10 ML SYR IV PRN; +REGADENOSON 0.4 MG/5 ML SYR (LEXISCAN) IV ONE
[2019-09-16 09:24] VITALS: BP 140/85
--- NOTE | 2019-09-16 17:27 | STRESS TEST ---
DATE OF SERVICE: 09/16/2019 RESTING AND POST REGADENOSON TECHNETIUMM-99M TETROFOSMIN SPECT IMAGING ORDERING PHYSICIAN: Dr. Clement. PRIMARY PHYSICIAN: Dr. Draper. CLINICAL DIAGNOSES: Coronary artery disease, hyperlipidemia, hypertension. Baseline images were carried out after injection of 10.97 mCi of technetium-99m Tetrofosmin. This was followed by 0.4 mg regadenoson and 30.3 mCi of technetium-99m Tetrofosmin for stress imaging. The electrocardiogram showed sinus rhythm at baseline. It did not change significantly with the regadenoson infusion. The patient noted some abdominal cramping and shortness of breath following regadenoson infusion, which resolved in a few minutes. Review of images at rest and following stress does not indicate any significant perfusion defects consistent with myocardial ischemia or infarction. Gated images show normal global left ventricular systolic function with normal regional wall motion. Left ventricular ejection fraction is calculated to be 63%. Left ventricular end diastolic volume is 49 mL. TID is absent (1). CONCLUSIONS: 1. No evidence of any significant myocardial ischemia or infarction. 2. Normal regional wall motion. 3. Normal global left ventricular systolic function with a calculated ejection fraction of 63%. Job ID: [id number] DocumentID: [id number] Dictated Date: 09/16/2019 16:12:21 Motor Teacher Date: 09/16/2019 17:27:00 Dictated By: EFFIE CLEMENT MD, MA, FACP, FACC,
== END ==
LOC: CARD 07:28
PROVIDERS: ATTEND Internal Medicine Cardiovascular Disease
DX: I25.10 Atherosclerotic heart disease of native coronary artery without angina pectoris (principal); E78.5 Hyperlipidemia, unspecified; I10 Essential (primary) hypertension; M79.89 Other specified soft tissue disorders
CPT/HCPCS: 78452; 93017; A9502

== ENCOUNTER → 2020-07-27 | Outpatient (CLI) | payer MEDICARE, MEDICAID ==
[~2020-07-27] MED LIST changes: +ASPI-1238 PO; -ASPI-983 PO; -CATHETER FLUSH 10 ML SYR IV PRN; -MONT10TA26 PO; +MONT10TA32 PO; -OXYC-471 PO; +OXYC1TAB11 PO; -REGADENOSON 0.4 MG/5 ML SYR (LEXISCAN) IV ONE
--- NOTE | 2020-07-27 12:27 | Diagnostic Imaging Report ---
INDICATION: Routine screening. Comparison is made with prior mammogram 02/10/2019 and 10/23/2016. 2-D and 3-D bilateral screening mammography was performed with CAD. Both breasts are heterogeneously dense, limiting the sensitivity of mammography. Biopsy clip outer right breast is again noted. The parenchymal pattern is stable. No mass or malignant appearing microcalcifications are seen. Axillae are unremarkable. IMPRESSION: BI-RADS Category 2 No mammographic features suspicious for malignancy are identified. ACR BI-RADS Category 2: Benign findings. Result letter will be mailed to the patient. Note: At least 10% of breast cancer is not imaged by mammography. Dictated by: Dictated on workstation # [id number]
== END ==
LOC: RAD 09:00
PROVIDERS: ATTEND Internal Medicine
DX: Z12.31 Encounter for screening mammogram for malignant neoplasm of breast (principal); Z98.890 Other specified postprocedural states
CPT/HCPCS: 77063; 77067

== ENCOUNTER → 2020-11-16 | Outpatient (CLI) | payer MEDICARE, MEDICAID ==
[~2020-11-16] MED LIST changes: -OMEP40CA27 PO; +OMEP40CA6 PO
== END ==
LOC: LABNPT 06:45
PROVIDERS: ATTEND Orthopaedic Surgery
DX: Z01.812 Encounter for preprocedural laboratory examination (principal); Z20.822 Contact with and (suspected) exposure to COVID-19
CPT/HCPCS: 87635

== ENCOUNTER 2021-07-26 07:07 | Day surgery (SDC) | payer MEDICARE, MEDICAID ==
[~2021-07-26] VITALS: Ht 174 cm; Wt 88.7 kg
[2021-07-26] VITALS (9 sets, daily range): BP systolic 125–180; BP diastolic 76–92
[~2021-07-26 07:07] MED LIST changes: +BENA-3 PO; -BENA20TA7 PO; -BENA40TA5 PO; +BENA40TA84 PO; +MONT-40 PO; -MONT10TA32 PO; +POTA-160 PO; -POTA10TA6 PO
[2021-07-26] MEDS ORDERED: NS IV 1000 ML 1,000 ML ONE (07:10)
[2021-07-26] MEDS ORDERED: HEParin (CATH LAB) 2,000 ML IV ONE (07:10)
[2021-07-26] MEDS ORDERED: LIDOCAINE 1% INJ 20 ML VIAL ONE (07:11)
[2021-07-26] MEDS ORDERED: NS IV 1000 ML 1,000 ML IV SCH ×2 (07:15→09:30)
[2021-07-26 07:35] LABS: HEMATOCRIT 41 % (35-52); MEAN CORPUSCULAR HEMOGLOBIN 28 pg (25-34); MEAN CORPUSCULAR HGB CONC 32 g/dL (32-36); MEAN CORPUSCULAR VOLUME 88 fL (80-99); MEAN PLATELET VOLUME 9.6 fL (9.0-12.2); PLATELET COUNT 213 10^3/uL (130-400); WHITE BLOOD COUNT 3.6 10^3/uL (4.3-11.0)
[2021-07-26] MEDS ORDERED: fentaNYL INJ 100 MCG/2 ML AMP ONE (07:47)
[2021-07-26] MEDS ORDERED: MIDAZOLAM 5 MG/5 ML (VERSED) VIAL ONE (07:48)
[2021-07-26 07:51] LABS: PROTHROMBIN TIME PATIENT 13.2 SEC (12.2-14.7)
[2021-07-26 07:56] LABS: ALBUMIN 3.9 GM/DL (3.2-4.5); BILIRUBIN,TOTAL 0.4 MG/DL (0.1-1.0); CALCIUM 9.3 MG/DL (8.5-10.1); CREATININE SERUM 0.89 MG/DL (0.60-1.30); POTASSIUM 4.2 MMOL/L (3.6-5.0); TOTAL PROTEIN 6.8 GM/DL (6.4-8.2)
[2021-07-26] MEDS ORDERED: POTA-179 PO (08:25)
[2021-07-26] MEDS ORDERED: OMEP40CA6 PO (08:25)
[2021-07-26] MEDS ORDERED: METO100T12 PO (08:25)
[2021-07-26] MEDS ORDERED: MONT-40 PO (08:25)
[2021-07-26] MEDS ORDERED: GABA300C PO (08:25)
[2021-07-26] MEDS ORDERED: ASPI-1238 PO (08:25)
[2021-07-26] MEDS ORDERED: MELO15TA39 PO (08:25)
[2021-07-26] MEDS ORDERED: FURO40TA4 PO (08:25)
[2021-07-26] MEDS ORDERED: LORA10TA7 PO (08:25)
[2021-07-26] MEDS ORDERED: DOXA2TAB2 PO (08:25)
[2021-07-26] MEDS ORDERED: DIPH1TAB25 PO (08:25)
[2021-07-26] MEDS ORDERED: ROSU10TA28 PO (08:25)
[2021-07-26] MEDS ORDERED: SENN25TA10 PO (08:39)
--- NOTE | 2021-07-26 09:21 | Cardiac Procedure Note-CS/ASA ---
Pre-Procedure Note Pre-Op Procedure Note H&P Reviewed The H&P was reviewed, patient examined and no changes noted. Date H&P Reviewed: Jul 26, 2021 Time H&P Reviewed: 08:45 Conscious Sedation Pre-Proced Time 08:45 ASA Score 3 For ASA 3 and 4: Consider anesthesia and medical clearance. Also, for patients with a history of failed moderate sedation consider anesthesia. Airway Lungs Heart ASA score ASA 1: a normal healthy patient ASA 2: a patient with a mild systemic disease (mid diabetes, controlled hypertension, obesity ASA 3: a patient with a severe systemic disease that limits activity (angina, COPD, prior Myocardial infarction) ASA 4: a patient with an incapacitating disease that is a constant threat to life (CHF, renal failure) ASA 5: a moribund patient not expected to survive 24 hrs. (ruptured aneurysm) ASA 6: a declared brain- patient whose organs are being harvested. For emergent operations, add the letter E after the classification Mallampati Classification Grade 2 Sedation Plan Analgesia, Amnesia, Plan communicated to team members, Discussed options with patient/fam, Discussed risks with patient/fam The patient is an appropriate candidate to undergo the planned procedure, sedation, and anesthesia. The patient immediately re-assessed prior to indication. EFFIE JARAMILLO MD FACP FAC [facility]S Jul 26, 2021 09:21
[2021-07-26] MEDS ORDERED: CLOP75TA28 PO (09:25)
--- NOTE | 2021-07-26 09:26 | Discharge Inst-Cardiology ---
Discharge Inst-Cardiac Discharge Medications New Medications: Clopidogrel Bisulfate (Clopidogrel) 75 Mg Tablet 75 MG PO DAILY, #30 TAB 5 Refills Continued Medications: Aspirin (Aspirin EC) 81 Mg Tablet.dr 81 MG PO DAILY, TAB Benazepril HCl (Benazepril HCl) 40 Mg Tab 40 MG PO DAILY, TAB Diphenoxylate HCl/Atropine (Diphenoxylate-Atrop 2.5-0.025) 2.5 Mg-0.025 Mg Tablet 1 EACH PO DAILY PRN for DIARRHEA, TAB Doxazosin Mesylate (Doxazosin Mesylate) 2 Mg Tablet 2 MG PO HS, TAB Fluticasone Propionate (Fluticasone Propionate) 16 Gm [place].susp 2 SPRAYS NS DAILY PRN for ALLERGIES, SPRAY Furosemide (Furosemide) 40 Mg Tablet 40 MG PO DAILY, TAB Gabapentin (Neurontin) 300 Mg Capsule 300 MG PO HS, CAP Loratadine (Loratadine) 10 Mg Tablet 10 MG PO HS, TAB Meloxicam (Meloxicam) 15 Mg Tablet 15 MG PO DAILY, TAB Metoprolol Tartrate (Metoprolol Tartrate) 100 Mg Tablet 100 MG PO BID, TAB Montelukast Sodium (Montelukast Sodium) 10 Mg Tablet 10 MG PO HS, TAB Omeprazole (Omeprazole) 40 Mg Capsule.dr 40 MG PO DAILY, CAP Potassium Chloride (Potassium Chloride) 20 Meq Tab.er.prt 20 MEQ PO DAILY Rosuvastatin Calcium (Rosuvastatin Calcium) 10 Mg Tablet 10 MG PO HS, TAB Sennosides (Laxative) 25 Mg Tablet 25 MG PO DAILY PRN for CONSTIPATION-5TH LINE, TAB EFFIE JARAMILLO MD FACP FAC CCDS Jul 26, 2021 09:26
--- NOTE | 2021-07-26 09:27 | Discharge Inst-Post CATH ---
Discharge Inst-CATH/EP Post Cardiac Cath/EP D/C Inst Follow Up/Plan F/u with Dr Clement in 2 weeks ACTIVITY * Go Home directly and rest. * Limit activity of the leg (or wrist if it was used) for 7 days including aerobics, swimming, jogging, bicycling, etc. * Restrict stair-climbing for 7 days if possible, if not, climb up with your n on-cath leg, then bring together on the same step. * Avoid lifting, pushing, pulling or excessive movement of the affected ex tremity for 7 days. * Customary sexual activity may be resumed after 2 days-use caution not to use a position that strains or causes pain to the affected extremity. * No driving for 24 hours. * NO SMOKING. * Avoid straining for bowel movements for 7 days. * Gentle walking on level ground is allowed. * Returning to work will depend on the type of procedure and the results. Your doctor will discuss this with you. CALL YOUR DOCTOR FOR ANY OF THE FOLLOWING: *If bleeding from the puncture site occurs- Apply gentle pressure to site with clean cloth and call your doctor or EMS. * If a knot or lump forms under the skin, increases in size, or causes pain. * If bruising appears to be worsening or moving further down your leg instead of disappearing. * Temperature above 101 F. CARE OF YOUR GROIN INCISION; * Bruising or purple discoloration of the skin near the puncture site is common. * You may shower only, no bathtub bathing for 5 days. Be careful to avoid slipping as your leg may feel stiff. * If a closure device was used on your femoral artery, please see the attached guide regarding care of the device and your leg. * Leave dressing on FOR 24 hours. CARE OF YOUR WRIST INCISION; * Bruising or purple discoloration of the skin near the puncture site is common. * You may shower. * DO NOT submerge wrist. * Leave dressing on FOR 24 hours. EFFIE CLEMENT MD [facility] Jul 26, 2021 09:27
[2021-07-26] MEDS ORDERED: PATIENT MAY USE OWN MEDS, ALL PO SCH (09:30)
--- NOTE | 2021-07-26 10:32 | CARDIAC CATHETERIZATION ---
DATE OF SERVICE: 07/26/2021 CARDIAC CATHETERIZATION REPORT The patient is a 70-year-old lady who has had chest discomfort and is known to have coronary artery disease. Cardiac catheterization was carried out today after having obtained an informed consent. DESCRIPTION OF PROCEDURE: She was brought to the cardiac catheterization laboratory in a fasting state. Right groin was prepared and draped in the usual sterile fashion. Lidocaine 1% was used for local anesthesia. Modified Seldinger technique was used to advance a 5-Chadian sheath into the right femoral artery. We used 5-Chadian JL4 catheter for left coronary angiography and 5-Chadian pigtail catheter for left heart catheterization and left ventricular angiography. We pulled back the pigtail into the aortic root and aortic root angiography was performed. 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 Subsequently, we used multiple catheters to try and engage the right coronary artery. We were not successful. We exchanged the sheath over a wire for a 6-Chadian sheath. We used a 6-Chadian AL1 catheter to try and engage the right coronary artery, which appears to arise from the left coronary sinus. We were not able to engage it selectively, but we did obtain adequate views to see that the artery did not contain significant disease. The catheter was removed. Angiography of the right femoral artery had been carried out through the sheath at the beginning of the procedure. At the end of the procedure, Mynx was used to achieve hemostasis. HEMODYNAMICS: Left ventricular end-diastolic pressure following coronary angiography was 13 mmHg. There is no significant pressure gradient on pullback across the aortic valve. Ascending aortic pressure was 105/54 with a mean of 73 mmHg. CORONARY ANGIOGRAPHY: Coronary calcification is present involving all coronary arteries. Left main coronary artery does not exhibit significant disease. Left anterior descending artery has diffuse disease with stenoses of up to 50% in its proximal and mid portions. The left circumflex artery has mild plaque. 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 LEFT VENTRICULAR ANGIOGRAPHY: Left ventricular angiography was carried out in the right anterior oblique projection. Global left ventricular systolic function is well preserved. Left ventricular ejection fraction approximately 60%. AORTIC ROOT ANGIOGRAPHY: Aortic root angiography did not indicate any significant aortic root aneurysm or dissection. Aortic valve leaflets exhibit good leaflet excursion. The initial parts of the left and the right coronary arteries were visualized. CONCLUSIONS: 1. Moderate coronary artery disease consisting of up to 50% stenoses in the proximal and mid left anterior descending artery and diffuse mild to moderate disease involving all coronary vessels. 2. Normal global left ventricular systolic function with ejection fraction of 60%. 3. Left ventricular end-diastolic pressure is 13 mmHg. DISCUSSION AND RECOMMENDATIONS: Based on results of the study, it appears appropriate to continue a conservative approach. We are adding clopidogrel 75 mg a day to previous regimen. Outpatient followup is advised. Job ID: [id number] DocumentID: [id number] Dictated Date: 07/26/2021 09:33:00 Magnetic Resonance Imaging Director Date: 07/26/2021 10:31:46 Dictated By: EFFIE JARAMILLO MD, MA, FACP, FACC, MTDD
== END 2021-07-26 13:00 ==
LOC: CATH 07:07 → SDC 09:40 → CATH 13:00
PROVIDERS: ATTEND Internal Medicine Cardiovascular Disease
DX: I25.118 Atherosclerotic heart disease of native coronary artery with other forms of angina pectoris (principal); I10 Essential (primary) hypertension; E78.5 Hyperlipidemia, unspecified; E78.2 Mixed hyperlipidemia; M62.89 Other specified disorders of muscle; M79.89 Other specified soft tissue disorders; K21.9 Gastro-esophageal reflux disease without esophagitis; Z90.49 Acquired absence of other specified parts of digestive tract; Z79.899 Other long term (current) drug therapy; Z87.891 Personal history of nicotine dependence
CPT/HCPCS: 80053; 80061; 85027; 85610; 85730; 87081; 93005; 93458; C1760; C1894 ×3; 36415

== ENCOUNTER → 2021-11-15 | Outpatient (CLI) | payer MEDICARE, MEDICAID ==
[~2021-11-15] MED LIST changes: +CLOP75TA28 PO; +DIPH1TAB25 PO; +DOXA2TAB2 PO; +FURO40TA4 PO; +GABA300C PO; +METO100T12 PO; +POTA-179 PO; +ROSU10TA28 PO; +SENN25TA10 PO
--- NOTE | 2021-11-15 11:55 | Diagnostic Imaging Report ---
PROCEDURE: CT lumbar spine without contrast. TECHNIQUE: Multiple contiguous axial images were obtained through the lumbar spine without the use of intravenous contrast. Sagittal and coronal reformations were then performed. Auto Exposure Controls were utilized during the CT exam to meet ALARA standards for radiation dose reduction. INDICATION: Back pain. COMPARISON: Exam is compared with lumbar CT 02/11/2018. FINDINGS: Since the prior, the L3-L4 interbody fusion has become solid. Since the prior, there has been new interbody fusion at L2-L3 where posterior fusion with bipedicular screws has also been extended. The alignment is stable with unchanged grade 1 slight retrolisthesis of L4 with respect to the remaining lumbar column. This is unchanged. No findings of pseudoarthrosis. Anterior interbody fusions at L4-L5 and L5-S1 are stable and solid. There has been interval laminectomy at the L2 level without fluid collection. Left lateral effusions at L2-L3 and on the right at L3-L4 noted. No osteolysis. No bony destruction. No fracture or acute appearing abnormality. IMPRESSION: Chronic as well as new postsurgical changes without apparent complication or findings of pseudoarthrosis. No fracture or malalignment. No substantial canal stenosis. No acute appearing abnormality. Dictated by: Dictated on workstation # [id number]
== END ==
LOC: RAD 10:11
PROVIDERS: ATTEND Physician Assistant
DX: M54.50 Low back pain, unspecified (principal); Z98.1 Arthrodesis status
CPT/HCPCS: 72131

== ENCOUNTER → 2021-12-02 | Outpatient (CLI) | payer MEDICARE, MEDICAID | LOC: CARD 12:54 | PROVIDERS: ATTEND Internal Medicine Cardiovascular Disease | DX: R00.2 Palpitations (principal) | CPT/HCPCS: 93225; 93226 ==

== ENCOUNTER 2022-07-21 08:30 | Inpatient (IN) | payer MEDICARE, MEDICAID ==
[~2022-07-21] VITALS: Ht 182.8 cm; Wt 84.7 kg
[2022-07-21] VITALS (17 sets, daily range): BP systolic 145–202; BP diastolic 72–124
[~2022-07-21 08:30] MED LIST changes: -ACET-2267 PO; -CARV25TA PO; -ISOS30TA82 PO; -NIFE-25 PO; -NITRO DRIP 25000 MCG/D5W 250 ML IV ONE; -PANT40TA52 PO; -POTA10TA PO; -TICA90TA PO
--- NOTE | 2022-07-21 08:49 | ED Respiratory ---
General Chief Complaint: Respiratory Problems Stated Complaint: WEAKNESS | FATIGUE | SOB Nursing Triage Note: PT AMB TO RM 3 PT CO OF SOB W ACTIVITY FOR APPROX 1 WEEK, PT STATES WAS SUPPOSED TO HAVE NUCLEAR STRESS TODAY BUT MEDS DID NOT COME IN SO SHE WAS SENT TO ED BY DR BYERS. PT HAS C/P 5/10 WHEN WALKS BUT GOES AWAY WHEN SITS DOWN. Source: patient Exam Limitations: no limitations History of Present Illness Date Seen by Provider: Jul 21, 2022 Time Seen by Provider: 08:48 Initial Comments Patient is a 71-year-old female who presents to the emergency department today with a chief complaint of exertional shortness of breath and chest pain. Patient states over the last week she has developed the symptoms and they have worsened to the point that any exertion at all causes a "tightness" across her chest. Symptoms completely resolve upon rest. She feels palpitations at the onset of symptoms and gets extremely "winded". She saw her primary care doctor, Dr. Byers yesterday, he scheduled her for a nuclear stress test today however we did not have the materials to perform it so they sent her to the ED instead. Patient has seen Dr. Betancourt previously with a heart cath 1 year ago and a couple of 50% blockages. She has a history of smoking quit in 2008. She has hypertension. She did not take her medications this morning prior to the stress test. She is on metoprolol, benazepril, daily baby aspirin and Plavix. She denies any recent illnesses such as fevers, chills, cough or shortness of breath. Both her granddaughter and daughter have been sick with a viral upper respiratory illness recently. The patient herself did have an episode of diarrhea this morning, nonblack nonbloody. Timing/Duration: week, getting worse Severity: moderate Associated Symptoms: chest pain/soreness, shortness of breath Allergies and Home Medications Allergies Coded Allergies: codeine (Verified Allergy, Mild, CHEST PAIN; PT REC'D MORPHINE IN PAST, 07/21/22) hydrocodone (Verified Adverse Reaction, Unknown, causes elevated liver enzymes, 07/31/17) prednisone (Verified Adverse Reaction, Unknown, 08/06/17) CHEST PAIN Patient Home Medication List Home Medication List Reviewed: Yes Acetaminophen (Tylenol Extra Strength) 500 Mg Tablet, 1,000 MG PO Q8H PRN for PAIN-MILD (1-4), (Reported) Entered as Reported by: UMER SIDDIQUI on 07/21/221352 Last Action: Reviewed Aspirin (Aspirin EC) 81 Mg Tablet.dr, 81 MG PO DAILY, (Reported) Entered as Reported by: NIRMAL GUERRERO on 07/26/21824 Last Action: Reviewed Baclofen (Baclofen) 10 Mg Tablet, 10 MG PO BID PRN for MUSCLE SPASMS, (Reported) Entered as Reported by: UMER SIDDIQUI on 07/21/221352 Last Action: Reviewed Benazepril HCl (Benazepril HCl) 40 Mg Tab, 40 MG PO DAILY, (Reported) Entered as Reported by: LUIGI ROCHE on 07/31/171244 Last Action: Reviewed Clopidogrel Bisulfate (Clopidogrel) 75 Mg Tablet, 75 MG PO HS, (Reported) Entered as Reported by: UMER SIDDIQUI on 07/21/221352 Last Action: Reviewed Doxazosin Mesylate (Doxazosin Mesylate) 2 Mg Tablet, 2 MG PO HS, (Reported) Entered as Reported by: NIRMAL GUERRERO on 07/26/21824 Last Action: Reviewed Fluticasone Propionate (Fluticasone Propionate) 16 Gm [place].susp, 2 SPRAYS NS DAILY PRN for ALLERGIES, (Reported) Entered as Reported by: LUIGI ROCHE on 07/31/171243 Last Action: Reviewed Furosemide (Furosemide) 40 Mg Tablet, 40 MG PO DAILY, (Reported) Entered as Reported by: NIRMAL GUERRERO on 07/26/21824 Last Action: Reviewed Metoprolol Tartrate (Metoprolol Tartrate) 100 Mg Tablet, 100 MG PO BID, (Reported) Entered as Reported by: NIRMAL GUERRERO on 07/26/21824 Last Action: Reviewed Montelukast Sodium (Montelukast Sodium) 10 Mg Tablet, 10 MG PO HS, (Reported) Entered as Reported by: NIRMAL GUERRERO on 07/26/21824 Last Action: Reviewed Pantoprazole Sodium (Pantoprazole Sodium) 40 Mg Tablet.dr, 40 MG PO HS, (Reported) Entered as Reported by: UMER SIDDIQUI on 07/21/221352 Last Action: Reviewed Potassium Chloride (K-Tab ER) 10 Meq Tablet.er, 10 MEQ PO DAILY, (Reported) Entered as Reported by: UMER SIDDIQUI on 07/21/22 1353 Last Action: Reviewed Rosuvastatin Calcium (Rosuvastatin Calcium) 10 Mg Tablet, 10 MG PO HS, (Reported) Entered as Reported by: NIRMAL GUERRERO on 07/26/21824 Last Action: Reviewed Discontinued Medications Clopidogrel Bisulfate (Clopidogrel) 75 Mg Tablet, 75 MG PO DAILY Discontinued Reason: Duplicate Order Prescribed by: EFFIE JARAMILLO on 07/26/21924 Last Action: Discontinued Diphenoxylate HCl/Atropine (Diphenoxylate-Atrop 2.5-0.025) 2.5 Mg-0.025 Mg Tablet, 1 EACH PO DAILY PRN for DIARRHEA, (Reported) Discontinued Reason: No Longer Taking Entered as Reported by: NIRMAL GUERRERO on 07/26/21824 Last Action: Discontinued Gabapentin (Neurontin) 300 Mg Capsule, 300 MG PO HS, (Reported) Discontinued Reason: No Longer Taking Entered as Reported by: NIRMAL GUERRERO on 07/26/21824 Last Action: Discontinued Loratadine (Loratadine) 10 Mg Tablet, 10 MG PO HS, (Reported) Discontinued Reason: No Longer Taking Entered as Reported by: NIRMAL GUERRERO on 07/26/21824 Last Action: Discontinued Meloxicam (Meloxicam) 15 Mg Tablet, 15 MG PO DAILY, (Reported) Discontinued Reason: No Longer Taking Entered as Reported by: NIRMAL GUERRERO on 07/26/21824 Last Action: Discontinued Omeprazole (Omeprazole) 40 Mg Capsule.dr, 40 MG PO DAILY, (Reported) Discontinued Reason: No Longer Taking Entered as Reported by: NIRMAL GUERRERO on 07/26/21824 Last Action: Discontinued Potassium Chloride (Potassium Chloride) 20 Meq Tab.er.prt, 20 MEQ PO DAILY, (Reported) Discontinued Reason: Duplicate Order Entered as Reported by: NIRMAL GUERRERO on 07/26/21824 Last Action: Discontinued Sennosides (Laxative) 25 Mg Tablet, 25 MG PO DAILY PRN for CONSTIPATION-5TH LINE , (Reported) Discontinued Reason: No Longer Taking Entered as Reported by: NIRMAL GUERRERO on 07/26/21838 Last Action: Discontinued Review of Systems Review of Systems Constitutional: see HPI EENTM: no symptoms reported Respiratory: dyspnea on exertion Cardiovascular: chest pain Gastrointestinal: no symptoms reported Genitourinary: no symptoms reported Musculoskeletal: no symptoms reported Skin: no symptoms reported All Other Systems Reviewed Negative Unless Noted: Yes Past Keuroyx-Mbsrqu-Alafpg Hx Patient Social History Tobacco Use?: No Substance use?: No Alcohol Use?: No Pt feels they are or have been: No Immunizations Up To Date Influenza Vaccine Up-to-Date: Yes; Up-to-Date First/Initial COVID19 Vaccinat: YES Second COVID19 Vaccination Ryan: YES Third COVID19 Vaccination Date: YES Seasonal Allergies Seasonal Allergies: Yes Past Medical History Surgery/Hospitalization HX: HTN, BACK SURG, GB, ROTATOR CUFF SURG BILAT. CHF, Surgeries: Yes (HERNIA REPAIR, LAP NISSIN, BACK, bilat RCR, ) Abdominal, Gallbladder Respiratory: Yes (CHILDHOOD ASTHMA) Asthma Cardiac: No High Cholesterol, Hypertension Neurological: No Neuropathy Reproductive Disorders: No Female Reproductive Disorders: Denies Sexually Transmitted Disease: No HIV/AIDS: No Gastrointestinal: Yes Gastroesophageal Reflux, Hiatal Hernia, Irritable Bowel Musculoskeletal: Yes Arthritis, Rheumatoid Arthritis, Chronic Back Pain Endocrine: No HEENT: Yes (WEAR GLASSES, TOP DENTURES) Loss of Vision: Bilateral Hearing Impairment: Denies Cancer: No Psychosocial: No Integumentary: No Blood Disorders: No Adverse Reaction/Blood Tranf: No (N/A) Family Medical History Hypertension Physical Exam Vital Signs - First Documented 07/21/22 07/21/22 08:35 10:32 Temp 36.2 Pulse 87 Resp 16 B/P (MAP) 182/87 Pulse Ox 98 O2 Delivery Room Air Capillary Refill : Less Than 3 Seconds Height: 5'9.50" Weight: 165lbs. 4.0oz. [id number]; 25.00 BMI Method: General Appearance: WD/WN, no apparent distress Eyes: Bilateral Eye Normal Inspection, Bilateral Eye PERRL, Bilateral Eye EOMI HEENT: PERRL/EOMI Neck: full range of motion, supple, normal inspection Respiratory: lungs clear, normal breath sounds, no respiratory distress, no accessory muscle use Cardiovascular: other (2+ radial pulses bilaterally; brisk capillary refill) Extremities: normal range of motion, non-tender, normal inspection, no pedal edema, no calf tenderness, normal capillary refill Neurologic/Psychiatric: alert, normal mood/affect, oriented x 3 Skin: normal color, warm/dry Progress/Results/Core Measures Suspected Sepsis SIRS Temperature: Pulse: 87 Respiratory Rate: 16 Laboratory Tests 07/21/22 08:45: White Blood Count 4.5 Blood Pressure / Mean: Laboratory Tests 07/21/22 08:45: Creatinine 0.80, INR Comment 1.0, Platelet Count 204, Total Bilirubin 0.7 Results/Orders Lab Results Laboratory Tests Test 07/21/22 08:45 Range/Units White Blood Count 4.5 4.3-11.0 10^3/uL Red Blood Count 4.76 3.80-5.11 10^6/uL Hemoglobin 13.1 11.5-16.0 g/dL Hematocrit 42 35-52 % Mean Corpuscular Volume 88 80-99 fL Mean Corpuscular Hemoglobin 28 25-34 pg Mean Corpuscular Hemoglobin Concent 31 L 32-36 g/dL Red Cell Distribution Width 15.4 H 10.0-14.5 % Platelet Count 204 130-400 10^3/uL Mean Platelet Volume 9.6 9.0-12.2 fL Immature Granulocyte % (Auto) 0 % Neutrophils (%) (Auto) 49 42-75 % Lymphocytes (%) (Auto) 30 12-44 % Monocytes (%) (Auto) 12 0-12 % Eosinophils (%) (Auto) 8 0-10 % Basophils (%) (Auto) 1 0-10 % Neutrophils # (Auto) 2.2 1.8-7.8 10^3/uL Lymphocytes # (Auto) 1.3 1.0-4.0 10^3/uL Monocytes # (Auto) 0.6 0.0-1.0 10^3/uL Eosinophils # (Auto) 0.4 H 0.0-0.3 10^3/uL Basophils # (Auto) 0.0 0.0-0.1 10^3/uL Immature Granulocyte # (Auto) 0.0 0.0-0.1 10^3/uL Prothrombin Time 13.5 12.2-14.7 SEC INR Comment 1.0 0.8-1.4 Activated Partial Thromboplast Time 32 24-35 SEC D-Dimer 0.51 H 0.00-0.49 UG/ML Sodium Level 144 135-145 MMOL/L Potassium Level 3.4 L 3.6-5.0 MMOL/L Chloride Level 111 H 98-107 MMOL/L Carbon Dioxide Level 24 21-32 MMOL/L Anion Gap 9 5-14 MMOL/L Blood Urea Nitrogen 12 7-18 MG/DL Creatinine 0.80 0.60-1.30 MG/DL Estimat Glomerular Filtration Rate 78 BUN/Creatinine Ratio 15 Glucose Level 108 H 70-105 MG/DL Calcium Level 9.6 8.5-10.1 MG/DL Corrected Calcium 9.5 8.5-10.1 MG/DL Magnesium Level 2.3 1.6-2.4 MG/DL Total Bilirubin 0.7 0.1-1.0 MG/DL Aspartate Amino Transf (AST/SGOT) 20 5-34 U/L Alanine Aminotransferase (ALT/SGPT) 38 0-55 U/L Alkaline Phosphatase 93 40-136 U/L Troponin I < 0.028 <0.028 NG/ML Total Protein 7.3 6.4-8.2 GM/DL Albumin 4.1 3.2-4.5 GM/DL My Orders Orders - OSVALDO PLUNKETT MD Cbc With Automated Diff (07/21/22 08:58) Magnesium (07/21/22 08:58) Chest 1 View, Ap/Pa Only (07/21/22 08:58) Ekg Tracing (07/21/22 08:58) Comprehensive Metabolic Panel (07/21/22 08:58) Protime With Inr (07/21/22 08:58) Partial Thromboplastin Time (07/21/22 08:58) O2 (07/21/22 08:58) Monitor-Rhythm Ecg Trace Only (07/21/22 08:58) Lipid Panel (07/22/22 06:00) Ed Iv/Invasive Line Start (07/21/22 08:58) Troponin I [place] (07/21/22 08:58) Metoprolol Succinate (Xl) Tab (Toprol Xl (07/21/22 09:00) Aspirin Chewable Tablet (Baby Aspirin Ch (07/21/22 08:58) Fibrin Degradation Products (07/21/22 09:42) Ed Admission (Communication) (07/21/22 10:46) Echo W Doppler/Color Flow (07/21/22 10:48) Medications Given in ED Current Medications Medications Dose Ordered Sig/Gordy Route Start Time Stop Time Status Last Admin Dose Admin Metoprolol Succinate 100 mg ONCE ONCE PO 07/21/22 09:00 07/21/22 09:01 DC 07/21/22 09:14 100 MG Vital Signs/I&O 07/21/22 07/21/22 08:35 10:32 Temp 36.2 Pulse 87 71 Resp 16 22 B/P (MAP) 182/87 Pulse Ox 98 98 O2 Delivery Room Air Capillary Refill : Less Than 3 Seconds Progress Note : Time: 09:15 Progress Note Patient seen and examined by me. Evaluation today includes physical exam, EKG, single view chest x-ray, "cardiac work-up" to include CBC, Chem-12, troponin, coags, magnesium level, ddimer. Pertinent physical exam findings well-developed well-nourished 71-year-old in no acute distress. Asymptomatic lying in the bed while not exerting herself. Heart is regular, lungs are clear. 2+ distal pulses radius and dorsalis pedal's bilaterally. Abdomen is soft and nontender. Patient endorses lower extremity edema however this is not appreciable. No focal neurologic deficits. Vital signs are stable albeit the patient is hypertensive in the 200/105 range. She had not taken her morning blood pressure medications. Differential diagnosis based on history and physical alone, STEMI, NSTEMI, hypertensive emergency, pulmonary embolism, aortic aneurysm/dissection. Labs and imaging independently reviewed by me. EKG is normal sinus without ST segment elevation or depression. Chest x-ray is unremarkable. CBC is normal, chemistry is generally unremarkable. D-dimer is 0.51. Troponin undetectable. Coags within normal limits. Patient is treated in the emergency department with a full-strength aspirin. She remains asymptomatic throughout her stay. Low clinical concern for acute aortic dissection, CT considered however history and physical do not support the need. D-dimer 0.51 just barely above the baseline low clinical concern for acute pulmonary embolism. The patient has no risk factors for PE. Her blood pressure was treated also with her morning dose of 100 mg of metoprolol. Blood pressure came down to 188 systolic. Troponin negative therefore NSTEMI unlikely. No evidence for STEMI on EKG. Most likely hypertensive emergency/unstable angina with history of heart cath 1 year ago and 50% blockage noted in the LAD at that time. Case was discussed with Dr. Velasco, secured entrance monitor on-call. He recommends keeping the patient n.p.o. in preparation for left heart cath later this afternoon. Case was also discussed with Dr. Roldan, hospitalist on-call who accepts the patient for admission. ECG Initial ECG Impression Date: Jul 21, 2022 Initial ECG Impression Time: 09:00 Initial ECG Rate: 71 Initial ECG Rhythm: Normal Sinus Initial ECG Intervals CT interval 155 QRS 91 QTc 451 Comment Patient has deeply inverted T waves in leads III and aVF, also inverted in lead V3. No ectopy is noted. No ST segment elevation or depression. Diagnostic Imaging Diagonstic Imaging: Xray Plain Films/CT/US/NM/MRI: chest Comments [facility]. [place], [place] NAME: MAXIME DIXON [facility] REC#: [id number] PT STATUS: REG ER : 1950 PHYSICIAN: OSVALDO PLUNKETT MD ADMIT DATE: 07/21/22/ER Draft Date of Exam:07/21/22 CHEST 1 VIEW, AP/PA ONLY EXAMINATION: Chest 1 view HISTORY: Chest pain. Shortness of breath. COMPARISON: 06/05/2013. FINDINGS: The lung volumes are normal. No focal consolidation is seen. No large pleural effusion or pneumothorax is seen. The cardiomediastinal silhouette is normal in size and contour. There is calcified aortic atherosclerotic plaque. No acute osseous abnormality is seen. IMPRESSION: 1. No acute pleuroparenchymal process. Dictated on workstation # [id number] Dict: 07/21/22917 Trans: 07/21/22919 [facility] [id number] Interpreted by: NIA CHAO DO Electronically signed by: Departure Communication (Admissions) Time/Spoke to Admitting Phy: 09:[address] Roldan; accepts patient to Cardiac Stepdown; pbservation Time/Spoke to Consulting Phy: 09:[address] Velasco - would like a Ddimer checked Impression Primary Impression: Unstable angina Additional Impression: High blood pressure Qualified Codes: I10 - Essential (primary) hypertension Disposition: 09 ADMITTED INPATIENT Condition: Stable Admissions Decision to Admit Reason: Admit from ER (General) Decision to Admit/Date: Jul 21, 2022 Time/Decision to Admit Time: 09:03 Departure-Patient Inst. Referrals: JEFFREY BYERS DO (PCP/Family) Primary Care Physician OSVALDO PLUNKETT MD Jul 21, 2022 08:49
[2022-07-21] MEDS ORDERED: ASPIRIN 81 MG CHEW (CHILDREN'S ASA) PO STA (08:58)
[2022-07-21] MEDS ORDERED: meTOprolol SUCCINATE 100 MG (TOPROL XL) TAB PO ONE (09:00)
[2022-07-21 09:11] LABS: BASOPHILS % (AUTO) 1 % (0-10); EOSINOPHILS # (AUTO) 0.4 10^3/uL (0.0-0.3); EOSINOPHILS % (AUTO) 8 % (0-10); HEMATOCRIT 42 % (35-52); HEMOGLOBIN 13.1 g/dL (11.5-16.0); LYMPHOCYTES # (AUTO) 1.3 10^3/uL (1.0-4.0); LYMPHOCYTES % (AUTO) 30 % (12-44); MEAN CORPUSCULAR HEMOGLOBIN 28 pg (25-34); MEAN CORPUSCULAR HGB CONC 31 g/dL (32-36); MEAN CORPUSCULAR VOLUME 88 fL (80-99); MEAN PLATELET VOLUME 9.6 fL (9.0-12.2); MONOCYTES # (AUTO) 0.6 10^3/uL (0.0-1.0); MONOCYTES % (AUTO) 12 % (0-12); NEUTROPHILS # (AUTO) 2.2 10^3/uL (1.8-7.8); NEUTROPHILS % (AUTO) 49 % (42-75); PLATELET COUNT 204 10^3/uL (130-400); WHITE BLOOD COUNT 4.5 10^3/uL (4.3-11.0)
[2022-07-21 09:13] LABS: ALBUMIN 4.1 GM/DL (3.2-4.5); POTASSIUM 3.4 MMOL/L (3.6-5.0)
[2022-07-21 09:14] LABS: CALCIUM 9.6 MG/DL (8.5-10.1)
[2022-07-21 09:16] LABS: PROTHROMBIN TIME PATIENT 13.5 SEC (12.2-14.7); TOTAL PROTEIN 7.3 GM/DL (6.4-8.2)
[2022-07-21 09:18] LABS: BILIRUBIN,TOTAL 0.7 MG/DL (0.1-1.0)
[2022-07-21 09:19] LABS: CREATININE SERUM 0.8 MG/DL (0.60-1.30)
--- NOTE | 2022-07-21 09:20 | Diagnostic Imaging Report ---
EXAMINATION: Chest 1 view HISTORY: Chest pain. Shortness of breath. COMPARISON: 06/05/2013. FINDINGS: The lung volumes are normal. No focal consolidation is seen. No large pleural effusion or pneumothorax is seen. The cardiomediastinal silhouette is normal in size and contour. There is calcified aortic atherosclerotic plaque. No acute osseous abnormality is seen. IMPRESSION: 1. No acute pleuroparenchymal process. Dictated by: Dictated on workstation # [id number]
[2022-07-21 09:22] LABS: MAGNESIUM 2.3 MG/DL (1.6-2.4)
[2022-07-21] MEDS ORDERED: morphine INJ 4 MG/ML 1 ML (VIAL/SYRINGE) IV PRN (11:45)
[2022-07-21] MEDS ORDERED: NITROGLYCERIN 0.4 MG SL TABS BTL 25'S SL PRN (11:45)
[2022-07-21] MEDS ORDERED: PANT40TA52 PO (13:53)
[2022-07-21] MEDS ORDERED: CLOP75TA28 PO (13:53)
[2022-07-21] MEDS ORDERED: ACET-2267 PO (13:53)
[2022-07-21] MEDS ORDERED: POTA10TA PO (13:53)
[2022-07-21] MEDS ORDERED: BACL10TA PO (13:53)
[2022-07-21] MEDS ORDERED: LIDOCAINE 1% INJ 20 ML VIAL ONE (14:07)
[2022-07-21] MEDS ORDERED: HEParin (CATH LAB) 2,000 ML IV ONE (14:08)
[2022-07-21] MEDS ORDERED: NS IV 1000 ML 1,000 ML ONE (14:08)
[2022-07-21] MEDS ORDERED: MIDAZOLAM 5 MG/5 ML (VERSED) VIAL ONE (14:14)
[2022-07-21] MEDS ORDERED: fentaNYL INJ 100 MCG/2 ML AMP ONE (14:14)
[2022-07-21] MEDS ORDERED: HEParin 1000 UNIT/ML (10ML VIAL) FOR BOLUS ONE (14:14)
[2022-07-21] MEDS ORDERED: NITRO DRIP 25000 MCG/D5W 250 ML IV ONE (14:14)
[2022-07-21] MEDS ORDERED: VERAPAMIL 5 MG/2 ML (CALAN) VIAL IV ONE (14:14)
[2022-07-21] MEDS: hydrALAZINE (APESOLINE) 20 MG/ML VIAL IV PRN (14:23)
--- NOTE | 2022-07-21 14:43 | History & Physical-Hospitalist ---
History of Present Illness HPI/Chief Complaint Pt is 71yoF with a PMH of HTN and arthritis who presented to the ER due to chest pain and MARTINEZ. She reports that for a week or so she has had MARTINEZ with any level of walking. She becomes diaphoretic with this and gets chest pain on exertion. She doesn't believe it radiates anywhere but she states she has arthritis and so often has aches and pains places. When the pain occurs she rests and it resolves. She was admitted for further workup. Source: patient Date Seen 07/21/22 Time Seen by a Provider: 14:35 Attending Physician Og Byers DO PCP Admitting Physician: Nora Roldan MD Attending Physician: Nora Roldan MD Referring Physician Date of Admission Jul 21, 2022 at 10:49 Home Medications & Allergies Home Medications Reviewed patient Home Medication Reconciliation performed by pharmacy medication reconciliations manufacturing technician and/or nursing. Patients Allergies have been reviewed. Allergies Allergies Coded Allergies codeine (Verified Allergy, Mild, CHEST PAIN; PT REC'D MORPHINE IN PAST, 07/21/22) hydrocodone (Verified Adverse Reaction, Unknown, causes elevated liver enzymes, 07/31/17) prednisone (Verified Adverse Reaction, Unknown, 08/06/17) CHEST PAIN Past Xfjraer-Awmjdx-Lvvncc Hx Patient Social History Marrital Status: Tobacco Use?: No Smokeless Tobacco Frequency: Former User Use of E-Cig and/or Vaping dev: No Substance use?: No Alcohol Use?: No Pt feels they are or have been: No Immunizations Up To Date First/Initial COVID19 Vaccinat: YES Second COVID19 Vaccination Ryan: YES Tetanus Booster (TDap): Unknown Date of Pneumonia Vaccine: Dec 15, 2015 Seasonal Allergies Seasonal Allergies: Yes Current Status Advance Directives: Yes Advance Directive Location: Home Communicates: Verbally Primary Language: Persian Preferred Spoken Language: Persian Is interpretation needed?: No Sensory deficits: Vision impairment Implanted or Applied Medical D: None Past Medical History Surgeries: Abdominal, Gallbladder Asthma High Cholesterol, Hypertension Neuropathy Sexually Transmitted Disease: No HIV/AIDS: No Gastroesophageal Reflux, Hiatal Hernia, Irritable Bowel Arthritis, Rheumatoid Arthritis, Chronic Back Pain Loss of Vision: Bilateral Hearing Impairment: Denies Blood Disorders: No Adverse Reaction/Blood Tranf: No (N/A) Family Medical History Reviewed Nursing Family Hx Hypertension Review of Systems Constitutional: see HPI Physical Exam Physical Exam Vital Signs Vital Signs - First Documented 07/21/22 07/21/22 08:35 10:32 Temp 36.2 Pulse 87 Resp 16 B/P (MAP) 182/87 Pulse Ox 98 O2 Delivery Room Air Capillary Refill : Less Than 3 Seconds Height, Weight, BMI Height: 5'9.50" Weight: 165lbs. 4.0oz. 74.121814ie; 25.43 BMI Method: General Appearance: No Apparent Distress, WD/WN Respiratory: Lungs Clear, No Respiratory Distress Cardiovascular: Regular Rate, Rhythm, No Murmur Gastrointestinal: Normal Bowel Sounds, Non Tender, Soft Neurologic/Psychiatric: Alert, Oriented x3 Results Results/Procedures Labs Laboratory Tests 07/21/22 08:45 07/22/22 04:27 Patient resulted labs reviewed. Imaging: Reviewed Imaging Report Imaging [facility] [place], [place] NAME: MAXIME DIXON [facility] REC#: [id number] PT STATUS: REG ER : 1950 PHYSICIAN: OSVALDO PLUNKETT MD ADMIT DATE: 07/21/22/ER Signed Date of Exam:07/21/22 CHEST 1 VIEW, AP/PA ONLY EXAMINATION: Chest 1 view HISTORY: Chest pain. Shortness of breath. COMPARISON: 06/05/2013. FINDINGS: The lung volumes are normal. No focal consolidation is seen. No large pleural effusion or pneumothorax is seen. The cardiomediastinal silhouette is normal in size and contour. There is calcified aortic atherosclerotic plaque. No acute osseous abnormality is seen. IMPRESSION: 1. No acute pleuroparenchymal process. Dictated by: Dictated on workstation # [id number] Dict: 07/21/22917 Trans: 07/21/22923 [facility] [id number] Interpreted by: NIA CHAO DO Electronically signed by: NIA CHAO DO 07/21/22923 Assessment/Plan Admission Diagnosis Unstable Angina Admission Status: Observation Assessment and Plan Unstable Angina HTN Symptoms concerning for cardiac source cardiology consulted, appreciate recs Discussed with Dr Velasco- planning for cath today Telemetry NPO for cath Called and updated her PCP Dr Byers Continue home meds as appropriate post cath Diagnosis/Problems Diagnosis/Problems (1) Unstable angina Status: Acute (2) Hypertension Status: Chronic (3) Hyperlipidemia Status: Chronic Clinical Quality Measures AMI/AHF: ASA po Prior to arrival: No Copy Copies To 1: OG BYERS KATELYN M MD Jul 21, 2022 2:43 pm
[2022-07-21] MEDS ORDERED: ONDANSETRON 4 MG/2 ML (SDV) Z0FRAN ONE (14:58)
[2022-07-21] MEDS ORDERED: hydrALAZINE (APESOLINE) 20 MG/ML VIAL ONE (15:44)
[2022-07-21] MEDS: ACETAMINOPHEN 500 MG TAB (TYLENOL) PO PRN (16:53)
--- NOTE | 2022-07-21 17:16 | Consultation-Cardiology ---
HPI-Cardiology Cardiology Consultation Date of Consultation 07/21/22 Date of Admission Time Seen by Provider: 10:55 [facility] Ms. Keane is a 71-year-old female with a history of hypertension, moderate nonobstructive CAD by cardiac cath, former tobacco abuse, hyperlipidemia status post hernia repair, status post lap Palmira fundoplication who presents for evaluation of chest pain and dyspnea on exertion. Patient states that over the past week she has developed worsening shortness of breath and chest discomfort. She noted that with walking many feet she would begin to experience this discomfort. She comments that now with very little effort she has chest d iscomfort and shortness of breath. She denies any recent immobility any recent trauma any recent surgeries any recent travel. She comments that the symptoms when they occur initiate in the substernal chest and radiate into the bilateral neck. She notes that at times she will become presyncopal in those episodes as well. EKG today demonstrates normal sinus rhythm with T wave inversions in the inferior leads which is relatively unchanged from prior chest x-ray is negative for any acute intrathoracic process per initial blood pressures were over 200 systolic. Patient reports that her blood pressures are generally well controlled in the 140s range. Apparently, the patient saw her PCP. A stress test was scheduled. Unfortunately they did not have enough tracer so they recommended that she come to the emergency room for evaluation. Initial set of troponins are negative. D-dimer is marginally positive at 0.51. Home Medications & Allergies Allergies: Coded Allergies: codeine (Verified Allergy, Mild, CHEST PAIN; PT REC'D MORPHINE IN PAST, 07/21/22) hydrocodone (Verified Adverse Reaction, Unknown, causes elevated liver enzymes, 07/31/17) prednisone (Verified Adverse Reaction, Unknown, 08/06/17) CHEST PAIN Aspirin 81 mg p.o. daily Benazepril 40 mg p.o. daily Plavix 75 mg p.o. daily Doxazosin 2 mg p.o. daily Flonase Lasix 40 mg p.o. daily Neurontin 300 mg p.o. daily Claritin 10 mg p.o. daily Medical meloxicam 15 mg p.o. daily Metoprolol 100 mg p.o. twice daily Singulair 10 mg p.o. daily Prilosec 40 mg p.o. daily Crestor 10 mg p.o. nightly [id number]-[id number] Hx Patient Social History Marital Status: Recent Hopitalizations: No Have you traveled recently?: No Alcohol Use?: No Immunizations Up To Date Date of Pneumonia Vaccine: Dec 15, 2015 Past Medical History Status post hernia repair Status post Palmira fundoplication Hyperlipidemia Moderate nonobstructive CAD by cardiac cathpatient had cardiac cath in 07/26/2021 which demonstrated 50% proximal to mid LAD lesion with mild to moderate disease in other territories. Hypertension Former tobacco abuse Family Medical History Significant Family History: Hypertension Review of Systems-General Review of Systems ROS-Unable to Obtain: All systems were reviewed and are negative except for what is been describe Constitutional: see HPI EENTM: no symptoms reported Respiratory: dyspnea on exertion Cardiovascular: chest pain Gastrointestinal: no symptoms reported Genitourinary: no symptoms reported Musculoskeletal: no symptoms reported Skin: no symptoms reported All Other Systems Reviewed Negative Unless Noted: Yes Physical Exam Physical Exam Vital Signs Vital Signs - First Documented 07/21/22 07/21/22 08:35 10:32 Temp 36.2 Pulse 87 Resp 16 B/P (MAP) 182/87 Pulse Ox 98 O2 Delivery Room Air Capillary Refill : Less Than 3 Seconds Height, Weight, BMI Height: 5'9.50" Weight: 165lbs. 4.0oz. 74.055138rk; 25.43 BMI Method: General Appearance: No Apparent Distress, WD/WN Eyes: Bilateral Eye Normal Inspection, Bilateral Eye PERRL, Bilateral Eye EOMI Respiratory: Lungs Clear, No Respiratory Distress Cardiovascular: Regular Rate, Rhythm, No Murmur Gastrointestinal: Normal Bowel Sounds, Non Tender, Soft Neurologic/Psychiatric: Alert, Oriented x3 Comments Gen: No acute distress; A+O x 3, sitting comfortably in the bed Neck: soft supple, no cervical LAD Lungs: CTA-bilaterally; no rey wheezing, rales or rhonchi CV: nl s1/s2, no m-r, RRR; +s4 Abd: soft nt nd, no HSM, + BS Ext: wwp, no c-c-e; 2+ DP and femoral pulses skin: no lesions rashes or ecchymoses are noted. A/P-Cardiology Assessment/Plan Ms. Keane is a 71-year-old female with a history of hypertension, moderate nonobstructive CAD by cardiac cath, former tobacco abuse, hyperlipidemia status post hernia repair, status post lap Palmira fundoplication who presents for evaluation of chest pain and dyspnea on exertion. ## Unstable angina: Pain appears rather classic for angina. We will take her to cardiac cath to reassess her coronary anatomy. She is known to have 50% proximal to mid LAD lesion, mild nonobstructive disease in other territories on a prior cath in July 2021. Troponin negative x1 - Cath - Continue aspirin statin and Plavix -Follow-up troponin in a.m. -Repeat echocardiogram, last transthoracic echocardiogram from September 2019 dem onstrated normal LV RV function ##Hypertensive urgency: Blood pressures of greater than 200 systolic on admission. Blood pressures continue to be in the 180s to 190s range. -Restart her home medications. -We will transition her from metoprolol to Coreg for better antihypertensive effect -Continue benazepril and start isosorbide mononitrate 30 mg p.o. twice daily ##Hyperlipidemia - check lipid panel and A1c ##Disposition -N.p.o. for cardiac cath Pre-procedure Mallampati: 3 ASA: 3 Clinical Quality Measures AMI/AHF: ASA po Prior to arrival: PATO Cardenas MD Jul 21, 2022 17:16
--- NOTE | 2022-07-21 17:28 | Cardiac Cath Report ---
CARDIAC CATHETERIZATION DATE OF PROCEDURE: July 21, 2022 INDICATION: Chest pain, unstable angina. HISTORY: 71-year-old female with a history of moderate nonobstructive CAD by cardiac cath in July 2021, hypertension, from former tobacco abuse, family history of CAD, hyperlipidemia who presents for evaluation of progressively worsening chest discomfort and shortness of breath x1 week. Now referred for cardiac cath PROCEDURES PERFORMED: 1. Right radial artery access 2. Selective coronary angiography from the right radial approach 3. iFR of the LAD PROCEDURE DESCRIPTION: After informed consent and in the fasting state, the patient was taken to the Lumber Sorter, transferred to the procedure table and prepped and draped in the usual sterile fashion. Lidocaine was administered over the right radial artery. Access to the right common femoral artery was obtained using the modified Salinger technique and a 6 [place]ian radial slender sheath was placed. We proceeded with selective coronary angiography using a JL 4 (left coronary os) and JL3.5 (right coronary os) catheters. We then introduced a JL 4.0 guide catheter into the left coronary os. An IFR wire was introduced into the LAD after the standard zeroing and normalization techniques. iFR was confirmed at 0.88 and 0.89. iFR pullback was performed and demonstrated a diffuse and steady increase in the IFR value from the mid to the proximal segment of the LAD, suggestive of severe diffuse disease. It should be noted that the appearance of the vessel was unchanged from prior cardiac cath back in 2021. All equipment was removed. Radial band was applied. Hemostasis was achieved RESULTS: HEMODYNAMICS: Aortic pressures: 148/8, but were as high as 190 systolic during the case CORONARY ANGIOGRAPHY: Left main coronary artery: The left main is a large vessel without significant disease. It trifurcates into the left circumflex ramus and LAD territories. []. Left anterior descending coronary artery: The LAD is a moderate to large size vessel that reaches the apex. The LAD has a long 50 to 60% diffuse lesion extending from the proximal vessel to the mid segment of the vessel. This lesion was IFR to be returned at 0.89/0.88. iFR pullback revealed a long area of diffuse disease extending from the proximal to the midportion of the vessel. The LAD gives rise to 2 diagonal vessels. Diagonal 1 is a moderate to large size branching vessel with minimal luminal irregularities. Diagonal 2 is a small vessel with mild diffuse disease. Ramus: The ramus is a moderate-sized tortuous vessel. There is mild diffuse disease in the midsegment of the vessel with a 40 to 50% long lesion. Left circumflex coronary artery: The left circumflex is a moderate size vessel. The left circumflex has a 40% ostial lesion and a 20 to 30% lesion in the midsegment. It gives rise to 1 OM and 1 LPL vessel. OM1 is small with mild diffuse disease. LPL 1 is small to moderate-sized tortuous with minimal luminal irregularities. Right coronary artery: Dominant vessel. The right coronary artery has an anterior takeoff. It was cannulated using a JL 3.5 from the right radial. The RCA is a moderate to large sized vessel with 30 to 40% lesions in the proximal to midportion of the vessel. The RCA gives rise to an RPDA and branching RPL 1 vessel. The RPDA is small and tortuous with minimal luminal irregularities. The RPL 1 is a moderate size vessel branching with minimal luminal irregularities. PERCUTANEOUS CORONARY INTERVENTION: []. IMPRESSION: 1. Moderate to severe diffuse disease in the proximal to mid LAD, as confirmed by IFR pullback 2. Mild nonobstructive CAD in all other territories RECOMMENDATIONS: 1. Given the relatively unchanged appearance of the vessel and long diffuse disease noted by IFR pullback, we we will optimize her medical regimen to improve her blood pressures. Current blood pressures are running 190s to 200s systolic. Once her blood pressures are optimized we will reassess the patient; if she is still continuing to have chest pain symptoms, we will move forward with a long stent extending from the proximal to the midportion of the LAD. 2. Continue aspirin, statin, Plavix. Discontinue metoprolol and transition her to carvedilol which has better blood pressure lowering effect. We have no benazepril in house so we will start her on lisinopril 10 mg p.o. twice daily. We will also initiate isosorbide mononitrate to help maximize coronary dilatation. Follow-up as noted above. PATO MADSEN MD Jul 21, 2022 5:28 pm
[2022-07-21] MEDS: ONDANSETRON 4 MG/2 ML (SDV) Z0FRAN IVP PRN (18:34)
[2022-07-21] MEDS ORDERED: ROSUVASTATIN 20 MG (CRESTOR) TABLET PO SCH (21:00)
[2022-07-21] MEDS ORDERED: lisINopril 10 MG (PRINIVIL) TABLET PO SCH (21:00)
[2022-07-21] MEDS ORDERED: ISOSORBIDE MONONITRATE 30 MG (IMDUR) TAB PO SCH (21:00)
[2022-07-21] MEDS ORDERED: BACLOFEN 10 MG (LIORESAL) TAB PO PRN (22:00)
[2022-07-21] MEDS ORDERED: FLUTICASONE NASAL SPRAY (FLONASE) 16 GM BTL NS PRN (22:00)
[2022-07-21] MEDS: PANTOPRAZOLE 40 MG (PROTONIX) TAB PO SCH (22:36)
[2022-07-21] MEDS: MONTELUKAST 10 MG (SINGULAIR) TAB PO SCH (22:37)
[2022-07-22] VITALS: BP 134/66
[2022-07-22 04:00] VITALS: BP 137/74
[2022-07-22 04:43] LABS: HEMATOCRIT 39 % (35-52); HEMOGLOBIN 12.6 g/dL (11.5-16.0); MEAN CORPUSCULAR HEMOGLOBIN 28 pg (25-34); MEAN CORPUSCULAR HGB CONC 32 g/dL (32-36); MEAN CORPUSCULAR VOLUME 87 fL (80-99); MEAN PLATELET VOLUME 9.4 fL (9.0-12.2); PLATELET COUNT 213 10^3/uL (130-400); WHITE BLOOD COUNT 5.3 10^3/uL (4.3-11.0)
[2022-07-22] MEDS: ONDANSETRON 4 MG/2 ML (SDV) Z0FRAN IVP PRN (04:45)
[2022-07-22 04:54] LABS: POTASSIUM 3.7 MMOL/L (3.6-5.0)
[2022-07-22 05:00] LABS: CREATININE SERUM 0.84 MG/DL (0.60-1.30)
[2022-07-22] MEDS ORDERED: HEParin 1000 UNIT/ML (10ML VIAL) FOR BOLUS IV PRN (07:15)
[2022-07-22] MEDS ORDERED: HEParin DRIP 25000 UNIT/500ML 500 ML IV SCH ×2 (07:15→08:45)
[2022-07-22 07:41] LABS: PROTHROMBIN TIME PATIENT 13.6 SEC (12.2-14.7)
[2022-07-22] MEDS: ASPIRIN E.C. 81 MG (ECOTRIN) TAB PO SCH (08:00)
[2022-07-22] MEDS: FUROSEMIDE 40 MG (LASIX) TAB PO SCH (08:00)
[2022-07-22 08:04] VITALS: BP 152/79
[2022-07-22] MEDS ORDERED: HEParin 1000 UNIT/ML (10ML VIAL) FOR BOLUS IV SCH ×2 (08:45)
[2022-07-22] MEDS ORDERED: CLOPIDOGREL 75 MG (PLAVIX) TABLET PO SCH (09:00)
[2022-07-22] MEDS ORDERED: ONDANSETRON 4 MG/2 ML (SDV) Z0FRAN IVP NR (09:15)
--- NOTE | 2022-07-22 09:32 | Progress Note - Hospitalist ---
Subjective HPI/CC On Admission Date Seen by Provider: Jul 22, 2022 Pt is 71yoF with a PMH of HTN and arthritis who presented to the ER due to chest pain and MARTINEZ. She reports that for a week or so she has had MARTINEZ with any level of walking. She becomes diaphoretic with this and gets chest pain on exertion. She doesn't believe it radiates anywhere but she states she has arthritis and so often has aches and pains places. When the pain occurs she rests and it resolves. She was admitted for further workup. Subjective/Events-last exam Pt reports nausea this morning. Had zofran overnight but not improved. States she doesn't want to try anything else because the zofran didn't help. Discussed result of cath with her from yesterday and labs with plan for cath today. Called and updated her daughter as well. Objective Exam Vital Signs Vital Signs Date Time Temp Pulse Resp B/P (MAP) Pulse Ox O2 Delivery O2 Flow Rate FiO2 07/22/22 09:00 98 Room Air 07/22/22 08:04 37.2 89 13 152/79 (103) Capillary Refill : Less Than 3 Seconds General Appearance: WD/WN, Other (appears to not feel well) Respiratory: Lungs Clear, No Respiratory Distress Cardiovascular: Regular Rate, Rhythm, No Murmur Neurologic/Psychiatric: Alert, Oriented x3 Results/Procedures Lab Laboratory Tests 07/22/22 04:27 Patient resulted labs reviewed. Imaging: Reviewed Imaging Report Assessment/Plan Assessment and Plan Assess & Plan/Chief Complaint Unstable Angina HTN cardiology consulted, appreciate recs Cath done yesterday with moderate to severe disease to the LAD confirmed by IFR pullback Planning for repeat cath today Telemetry NPO for cath Heparin gtt ordered BP much improved continue current regimen DVT ppx; Heparin gtt Diagnosis/Problems Diagnosis/Problems (1) Unstable angina Status: Acute (2) Hypertension Status: Chronic (3) Hyperlipidemia Status: Chronic Clinical Quality Measures AMI/AHF: ASA po Prior to arrival: AVERY Chavez MD Jul 22, 2022 9:32 am
--- NOTE | 2022-07-22 09:59 | Cardiology Progress Note ---
Subjective Date Seen by Provider: Jul 22, 2022 Time Seen by Provider: 09:00 Subjective/Events-last exam Overnight pt denies chest pain, but continues ot be nauseous. Not much releife with Zofran 4mg. No chest pain. BPs improved to 130-160s sysoitlic. HRs 90s. Tn back this AM at 1.02 Objective-Cardiology Exam Last Set of Vital Signs Vital Signs 07/22/22 07/22/22 08:04 09:00 Temp 37.2 Pulse 89 Resp 13 B/P (MAP) 152/79 (103) Pulse Ox 98 O2 Delivery Room Air I&O Intake and Output 07/22/22 00:00 Intake Total 250 ml Output Total 625 ml Balance -375 ml Intake Oral 250 ml Output Urine Total 625 ml Daily Weight Change No Other physical findings Gen: No acute distress; A+O x 3, sitting comfortably in the bed Neck: soft supple, no cervical LAD Lungs: CTA-bilaterally; no rey wheezing, rales or rhonchi CV: nl s1/s2, no m-r, RRR; +s4 Abd: soft nt nd, no HSM, + BS Ext: wwp, no c-c-e; 2+ DP and femoral pulses skin: no lesions rashes or ecchymoses are noted. Results Lab Laboratory Tests 07/22/22 04:27 A/P-Cardiology Assessment/Plan Ms. Keane is a 71-year-old female with a history of hypertension, moderate nonobstructive CAD by cardiac cath, former tobacco abuse, hyperlipidemia status post hernia repair, status post lap Palmira fundoplication who presents for evaluation of chest pain and dyspnea on exertion. ## NSTEMI, Tn 1.02: Sxs not improved after med optiomization. Now with Tn 1.02 and persistent nausea. 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 PCI to prox to mid LAD planned. - heparin bolus + gtt - Cath this Am - Continue aspirin statin. - transition to Brilinta post cath - TTE demonstrates normal LV/RV function and no significant valvular lesions. ##Hypertensive urgency: Blood pressures of greater than 200 systolic on admission. Now improve dto 130-160s primarily. . - increase coreg to 12.5mg po BID -Continue lisinopirl 10 bid and isosorbide mononitrate 30 mg p.o. twice daily ##Hyperlipidemia; LDL 40, TC 103, TG 96, HDL 38 - cont crestor 10 - A1c pending ##Disposition -N.p.o. for cardiac cath Pre-procedure Mallampati: 3 ASA: 3 PATO MADSEN MD Jul 22, 2022 09:59
[2022-07-22] MEDS ORDERED: fentaNYL INJ 100 MCG/2 ML AMP ONE (10:15)
[2022-07-22] MEDS ORDERED: MIDAZOLAM 5 MG/5 ML (VERSED) VIAL ONE (10:15)
[2022-07-22] MEDS ORDERED: HEParin (CATH LAB) 1,000 ML IV ONE (10:21)
[2022-07-22] MEDS ORDERED: HEParin 1000 UNIT/ML (10ML VIAL) FOR BOLUS ONE (10:21)
[2022-07-22] MEDS ORDERED: NS IV 1000 ML 1,000 ML ONE (10:21)
[2022-07-22] MEDS ORDERED: LIDOCAINE 1% INJ 20 ML VIAL ONE (10:31)
[2022-07-22] MEDS ORDERED: METOCLOPRAMIDE INJ 10 MG/2 ML (REGLAN) ONE (11:43)
[2022-07-22] MEDS ORDERED: TICAGRELOR 90 MG TABLET (BRILINTA) PO ONE (11:54)
[2022-07-22 12:00] VITALS: BP 150/77
[2022-07-22] MEDS ORDERED: METOCLOPRAMIDE INJ 10 MG/2 ML (REGLAN) IVP PRN (12:30)
[2022-07-22] MEDS ORDERED: NS IV 1000 ML 1,000 ML IV SCH (12:30)
[2022-07-22] MEDS ORDERED: PATIENT MAY USE OWN MEDS, ALL PO SCH (12:30)
--- NOTE | 2022-07-22 12:37 | Cardiac Cath Report ---
CARDIAC CATHETERIZATION DATE OF PROCEDURE: July 22, 2022 INDICATION: NSTEMI. HISTORY: 71-year-old female with a history of moderate nonobstructive CAD by cardiac cath in July 2021, hypertension, former tobacco abuse, family history of CAD, hyperlipidemia who presents for evaluation of progressively worsening chest discomfort and shortness of breath x1 week. Taken to cath on July 21, 2022 at which point she was noted to have diffuse disease extending from the proximal to the mid LAD and IFR was positive at 0.89. Given the diffuse nature of the disease we decided to try to treat her medically and see if this provided relief. Patient continued to be nauseous overnight and had a elevation in troponins to 1.0. She will now be taken back to the cardiac Etl Database Developer for planned PCI of the LAD PROCEDURES PERFORMED: 1. Ultrasound-guided right common femoral artery access with micropuncture. 2. PCI of the proximal and mid LAD with a 3.0 x 35 mm TREVOR. 3. Right groin/extremity angiography 4. Percutaneous device closure with Mynx PROCEDURE DESCRIPTION and PROCEDURAL INTERVENTION: After informed consent and in the fasting state, the patient was taken to the Etl Database Developer, transferred to the procedure table and prepped and draped in the usual sterile fashion. Ultrasound was used to locate the right common femoral artery. Lidocaine was administered over the right common femoral artery. Access to the right common femoral artery was obtained using a 4 Grenadian micropuncture kit. We then introduced a 6 Grenadian short sheath. 5000 U heparin was administered and a JL4 guide was introduced. ACT was confirmed between 250- 350. A prowater wire was introduced into the distal LAD. The 60 to 70% proximal to mid LAD lesion (MARCIO 3) was again identified and a a 2.5 x 20 mm semicompliant balloon was used to dilate the mid and proximal LAD. After, a 3.0 x 35 mm Gayle drug-eluting stent was implanted extending from the proximal to the mid LAD. Excellent angiographic result was obtained yielding 0% post PCI st enosis with MARCIO-3 flow. Right extremity angiography was performed and demonstrated normal vasculature with an arteriotomy distal to the inferior epigastric artery and proximal to the femoral bifurcation. The site was deemed suitable for percutaneous device closure. A minx device was deployed. Hemostasis was achieved RESULTS: HEMODYNAMICS: Ao: 155/75/95 CORONARY ANGIOGRAPHY: Left main coronary artery: The left main is a large vessel without significant disease. It trifurcates into the left circumflex ramus and LAD territories. Left anterior descending coronary artery: The LAD is a moderate to large size vessel that reaches the apex. The LAD has a long 50 to 60% diffuse lesion extending from the proximal vessel to the mid segment of the vessel. This lesion was IFR to be returned at 0.89/0.88. iFR pullback revealed a long area of diffuse disease extending from the proximal to the midportion of the vessel. The LAD gives rise to 2 diagonal vessels. Diagonal 1 is a moderate to large size branching vessel with minimal luminal irregularities. Diagonal 2 is a small vessel with mild diffuse disease. Ramus: The ramus is a moderate-sized tortuous vessel. There is mild diffuse disease in the midsegment of the vessel with a 40 to 50% long lesion. Left circumflex coronary artery: The left circumflex is a moderate size vessel. The left circumflex has a 40% ostial lesion and a 20 to 30% lesion in the midsegment. It gives rise to 1 OM and 1 LPL vessel. OM1 is small with mild diffuse disease. LPL 1 is small to moderate-sized tortuous with minimal luminal irregularities. Right coronary artery: not injected. IMPRESSION: 1. NSTEMI with one-vessel severe CAD, proximal to mid LAD 2. PCI x1 with a 3.0 x 35 mm drug-eluting stent, Gayle RECOMMENDATIONS: -Continue with med optimization particular for blood pressure -Brilinta 180 mg p.o. x1 on the table and transition to dual antiplatelet therapy with aspirin and Brilinta PATO MADSEN MD Jul 22, 2022 12:37 pm
[2022-07-22 19:56] VITALS: BP 145/74
[2022-07-22] MEDS: MONTELUKAST 10 MG (SINGULAIR) TAB PO SCH (20:00)
[2022-07-22] MEDS: PANTOPRAZOLE 40 MG (PROTONIX) TAB PO SCH (20:00)
[2022-07-22] MEDS: TICAGRELOR 90 MG TABLET (BRILINTA) PO SCH (20:01)
[2022-07-22] MEDS ORDERED: ROSUVASTATIN 20 MG (CRESTOR) TABLET PO SCH (21:00)
[2022-07-22] MEDS ORDERED: ROSUVASTATIN 10 MG (CRESTOR) TABLET PO SCH (21:00)
[2022-07-23] VITALS: BP 156/77
[2022-07-23 04:00] VITALS: BP 193/98
[2022-07-23 04:59] LABS: HEMATOCRIT 36 % (35-52); HEMOGLOBIN 11.5 g/dL (11.5-16.0); MEAN CORPUSCULAR HEMOGLOBIN 28 pg (25-34); MEAN CORPUSCULAR HGB CONC 32 g/dL (32-36); MEAN CORPUSCULAR VOLUME 88 fL (80-99); MEAN PLATELET VOLUME 9.5 fL (9.0-12.2); PLATELET COUNT 170 10^3/uL (130-400); WHITE BLOOD COUNT 5.3 10^3/uL (4.3-11.0)
[2022-07-23] MEDS: hydrALAZINE (APESOLINE) 20 MG/ML VIAL IV PRN (05:11)
[2022-07-23 05:13] LABS: POTASSIUM 3.4 MMOL/L (3.6-5.0)
[2022-07-23 05:14] LABS: CALCIUM 8.7 MG/DL (8.5-10.1)
[2022-07-23 05:19] LABS: CREATININE SERUM 0.73 MG/DL (0.60-1.30)
[2022-07-23] MEDS: ACETAMINOPHEN 500 MG TAB (TYLENOL) PO PRN (06:35)
[2022-07-23 07:59] VITALS: BP 188/90
[2022-07-23] MEDS: ASPIRIN E.C. 81 MG (ECOTRIN) TAB PO SCH (08:40)
[2022-07-23] MEDS: TICAGRELOR 90 MG TABLET (BRILINTA) PO SCH (08:41)
[2022-07-23] MEDS: FUROSEMIDE 40 MG (LASIX) TAB PO SCH (08:41)
[2022-07-23] MEDS ORDERED: lisINopril 40 MG (PRINIVIL) TABLET PO SCH (09:00)
[2022-07-23] MEDS ORDERED: lisINopril 10 MG (PRINIVIL) TABLET PO SCH ×2 (09:00)
[2022-07-23] MEDS ORDERED: ISOSORBIDE MONONITRATE 30 MG (IMDUR) TAB PO SCH (09:00)
[2022-07-23] MEDS ORDERED: NIFEdipine ER 30 MG (PROCARDIA XL) TAB PO SCH (10:00)
--- NOTE | 2022-07-23 10:41 | Progress Note - Hospitalist ---
Subjective HPI/CC On Admission Date Seen by Provider: Jul 23, 2022 Pt is 71yoF with a PMH of HTN and arthritis who presented to the ER due to chest pain and MARTINEZ. She reports that for a week or so she has had MARTINEZ with any level of walking. She becomes diaphoretic with this and gets chest pain on exertion. She doesn't believe it radiates anywhere but she states she has arthritis and so often has aches and pains places. When the pain occurs she rests and it resolves. She was admitted for further workup. Subjective/Events-last exam Pt reports feeling mostly better today. Nausea improving but still somewhat present. BP quite elevated this AM as well. Objective Exam Vital Signs Vital Signs Date Time Temp Pulse Resp B/P (MAP) Pulse Ox O2 Delivery O2 Flow Rate FiO2 07/23/22 07:59 36.2 86 15 188/90 (122) 99 Room Air Capillary Refill : Less Than 3 Seconds General Appearance: No Apparent Distress, WD/WN Respiratory: Lungs Clear, No Respiratory Distress Cardiovascular: Regular Rate, Rhythm Gastrointestinal: Normal Bowel Sounds, Soft Neurologic/Psychiatric: Alert, Oriented x3 Results/Procedures Lab Laboratory Tests 07/23/22 04:49 Patient resulted labs reviewed. Imaging: Reviewed Imaging Report Assessment/Plan Assessment and Plan Assess & Plan/Chief Complaint Unstable Angina CAD HTN cardiology consulted, appreciate recs Cath yesterday with stent to LAD Telemetry DAPT- with Brilinta Statin Imdur, Nifedipine, Coreg, and Lisinopril BP up again today- hesitant to DC home with that high of BPs and still slightly nauseated- will check in later today DVT ppx; Heparin gtt Diagnosis/Problems Diagnosis/Problems (1) Unstable angina Status: Acute (2) Hypertension Status: Chronic (3) Hyperlipidemia Status: Chronic Clinical Quality Measures AMI/AHF: ASA po Prior to arrival: AVERY Chavez MD Jul 23, 2022 10:41
[2022-07-23] MEDS ORDERED: KCL 20 MEQ TAB (K-DUR) PO NR (11:00)
--- NOTE | 2022-07-23 11:44 | Cardiology Progress Note ---
Subjective Date Seen by Provider: Jul 23, 2022 Time Seen by Provider: 09:00 Subjective/Events-last exam No acute issues overnight. Nausea and cp fully resolved. s/p TREVOR x 1 to proximal LAD with a 3.0 x 35mm Ibis. Objective-Cardiology Exam Last Set of Vital Signs Vital Signs 07/23/22 07:59 Temp 36.2 Pulse 86 Resp 15 B/P (MAP) 188/90 (122) Pulse Ox 99 O2 Delivery Room Air I&O Intake and Output 07/23/22 00:00 Intake Total 361 ml Output Total 300 ml Balance 61 ml Intake Oral 361 ml Output Urine Total 300 ml # Voids 2 Other physical findings Gen: No acute distress; A+O x 3, sitting comfortably in the bed Neck: soft supple, no cervical LAD Lungs: CTA-bilaterally; no rey wheezing, rales or rhonchi CV: nl s1/s2, no m-r, RRR; +s4 Abd: soft nt nd, no HSM, + BS Ext: wwp, no c-c-e; 2+ DP and femoral pulses; R femoral- 2+ pulse, no eccymoses . skin: no lesions rashes or ecchymoses are noted. Results Lab Laboratory Tests 07/23/22 04:49 A/P-Cardiology Assessment/Plan Ms. Keane is a 71-year-old female with a history of hypertension, moderate nonobstructive CAD by cardiac cath, former tobacco abuse, hyperlipidemia status post hernia repair, status post lap Palmira fundoplication who presents for evaluation of chest pain and dyspnea on exertion. ## NSTEMI, Tn peaked at 1.0, down to 0.8 this AM. S/p PCI x 1 to prox LAD with 3.0 x 35mm Ibis. Complete resolution of symptoms. - heparin gtt off after cath yesterday - up and out of bed TID today- walk in halls - Continue aspirin statin. - cont brilinta, coreg, and lisinopirl - TTE demonstrates normal LV/RV function and no significant valvular lesions. ##Hypertensive urgency: Blood pressures of greater than 200 systolic on admission. 140-180s overnight. - increase coreg to 25mg po BID and lisinopril to 40 QD, cont imdur 30 QD - review BPs and if sitll elevated, will add nifedpine 30-mg po QD this PM ##Hyperlipidemia; LDL 40, TC 103, TG 96, HDL 38 - cont crestor 10 - A1c still pending ##Disposition - BP med uptitration, up and walking today, likely d/c in AM PATO MADSEN MD Jul 23, 2022 11:44 am
[2022-07-23 12:00] VITALS: BP 134/78
[2022-07-23 16:00] VITALS: BP 153/83
[2022-07-23] MEDS ORDERED: TICA90TA PO (16:57)
[2022-07-23] MEDS ORDERED: ISOS30TA82 PO (16:57)
[2022-07-23] MEDS ORDERED: CARV25TA PO (16:57)
[2022-07-23] MEDS ORDERED: NIFE-25 PO (16:57)
--- NOTE | 2022-07-23 17:01 | Discharge Inst-Simple/Standard ---
Discharge Inst-Standard Discharge Medications New, Converted or Re-Newed RX: Transmitted to Pharmacy Patient Instructions/Follow Up Plan of Care/Instructions/FU: Please continue to take your medications as written. Please follow up with Dr Clement and Dr Byers to follow up this hospital stay. Activity as Tolerated: Yes Discharge Diet: Cardiac Diet Return to The Hospital For: Chest pain, swelling or bleeding around your incision, shortness of breath, weakness, nausea, confusion, if you feel you are getting worse. AVERY CRUZ MD Jul 23, 2022 17:01
--- NOTE | 2022-07-23 17:02 | Discharge Summary ---
Diagnosis/Chief Complaint Date of Admission Jul 22, 2022 at 16:12 Date of Discharge Discharge Date: Jul 23, 2022 Admission Diagnosis Unstable Angina Primary Care Og Byers DO Discharge Diagnosis (1) Unstable angina Status: Acute (2) Hypertension Status: Chronic (3) Hyperlipidemia Status: Chronic Discharge Summary Discharge Physical Exam Allergies: Coded Allergies: codeine (Verified Allergy, Mild, CHEST PAIN; PT REC'D MORPHINE IN PAST, 07/21/22) hydrocodone (Verified Adverse Reaction, Unknown, causes elevated liver enzymes, 07/31/17) prednisone (Verified Adverse Reaction, Unknown, 08/06/17) CHEST PAIN Vitals & I&Os Vital Signs Date Time Temp Pulse Resp B/P (MAP) Pulse Ox O2 Delivery O2 Flow Rate FiO2 07/23/22 16:00 37.2 104 16 153/83 (106) 99 Room Air Hospital Course Labs (last 24 hrs) Laboratory Tests 07/23/22 04:49: White Blood Count 5.3, Red Blood Count 4.12, Hemoglobin 11.5, Hematocrit 36, Mean Corpuscular Volume 88, Mean Corpuscular Hemoglobin 28, Mean Corpuscular Hemoglobin Concent 32, Red Cell Distribution Width 15.4H, Platelet Count 170, Mean Platelet Volume 9.5, Sodium Level 144, Potassium Level 3.4L, Chloride Level 114H, Carbon Dioxide Level 20L, Anion Gap 10, Blood Urea Nitrogen 12, Creatinine 0.73, Estimat Glomerular Filtration Rate 87, BUN/Creatinine Ratio 16, Glucose Level 108H, Calcium Level 8.7 07/23/22 05:45: Troponin I 0.842*H Microbiology 07/21/22 MRSA Screen - Final, Complete MRSA not isolated Patient resulted labs reviewed. Imaging: Reviewed Imaging Report Discharge Home Medications: Active Scripts Active Nifedipine ER (Nifedipine) 30 Mg Tab.er.24 30 Mg PO DAILY Carvedilol 25 Mg Tablet 25 Mg PO BID Isosorbide Mononitrate ER (Isosorbide Mononitrate) 30 Mg Tab.er.24h 30 Mg PO DAILY Brilinta (Ticagrelor) 90 Mg Tablet 90 Mg PO BID Reported Baclofen 10 Mg Tablet 10 Mg PO BID PRN Tylenol Extra Strength (Acetaminophen) 500 Mg Tablet 1,000 Mg PO Q8H PRN Pantoprazole Sodium 40 Mg Tablet.dr 40 Mg PO HS K-Tab ER (Potassium Chloride) 10 Meq Tablet.er 10 Meq PO DAILY Clopidogrel (Clopidogrel Bisulfate) 75 Mg Tablet 75 Mg PO HS Rosuvastatin Calcium 10 Mg Tablet 10 Mg PO HS Montelukast Sodium 10 Mg Tablet 10 Mg PO HS Metoprolol Tartrate 100 Mg Tablet 100 Mg PO BID Furosemide 40 Mg Tablet 40 Mg PO DAILY Doxazosin Mesylate 2 Mg Tablet 2 Mg PO HS Aspirin EC (Aspirin) 81 Mg Tablet.dr 81 Mg PO DAILY Benazepril HCl 40 Mg Tab 40 Mg PO DAILY Fluticasone Propionate 16 Gm [place].susp 2 Sprays NS DAILY PRN Instructions to patient/family Please see electronic discharge instructions given to patient. Clinical Quality Measures AMI/AHF: ASA po Prior to arrival: AVERY Chavez MD Jul 23, 2022 17:02
== END 2022-07-23 17:50 | disposition home or self-care (01) | DRG 247 ==
LOC: EDUNIT# 08:30 → ER 08:34 → CSD 10:49 → OBSVTOIN 07-22 16:12
PROVIDERS: ADMIT Family Medicine; ATTEND Family Medicine
PROC: 4A023N7 Measurement of Cardiac Sampling and Pressure, Left Heart, Percutaneous Approach (ICD-10-PCS; 2022-07-21)
PROC: B2111ZZ Fluoroscopy of Multiple Coronary Arteries using Low Osmolar Contrast (ICD-10-PCS; 2022-07-21)
PROC: 4A0335C Measurement of Arterial Flow, Coronary, Percutaneous Approach (ICD-10-PCS; 2022-07-21)
PROC: 027034Z Dilation of Coronary Artery, One Artery with Drug-eluting Intraluminal Device, Percutaneous Approach (ICD-10-PCS; principal; 2022-07-22)
DX: I21.4 Non-ST elevation (NSTEMI) myocardial infarction (principal); I25.110 Atherosclerotic heart disease of native coronary artery with unstable angina pectoris; I10 Essential (primary) hypertension; I16.0 Hypertensive urgency; E78.00 Pure hypercholesterolemia, unspecified; K21.9 Gastro-esophageal reflux disease without esophagitis; M06.9 Rheumatoid arthritis, unspecified; M19.90 Unspecified osteoarthritis, unspecified site; G62.9 Polyneuropathy, unspecified; J45.909 Unspecified asthma, uncomplicated; H54.7 Unspecified visual loss; Z82.49 Family history of ischemic heart disease and other diseases of the circulatory system; Z87.891 Personal history of nicotine dependence; Z88.5 Allergy status to narcotic agent; Z88.8 Allergy status to other drugs, medicaments and biological substances; Z79.02 Long term (current) use of antithrombotics/antiplatelets; Z79.82 Long term (current) use of aspirin; Z79.899 Other long term (current) drug therapy
CPT/HCPCS: 36415; 71045; 80048; 80053; 80061; 83036; 83735; 84484; 85025; 85027; 85379; 85610; 85730; 87081; 93005; 93041; 93306; 93454

== ENCOUNTER → 2022-07-21 | Outpatient (CLI) | payer MEDICARE, MEDICAID ==
[~2022-07-21] MED LIST changes: +ACET-2267 PO; +CARV25TA PO; +ISOS30TA82 PO; +NIFE-25 PO; +NITRO DRIP 25000 MCG/D5W 250 ML IV ONE; +PANT40TA52 PO; +POTA10CA44 PO; +POTA10TA PO; +TICA90TA PO
== END ==
LOC: CARD 06:26
PROVIDERS: ATTEND Internal Medicine
DX: I25.10 Atherosclerotic heart disease of native coronary artery without angina pectoris (principal)

== ENCOUNTER → 2022-11-20 | Outpatient (CLI) | payer MEDICARE, MEDICAID ==
[~2022-11-20] MED LIST changes: +ACET-2267 PO; +CARV25TA PO; +CATHETER FLUSH 10 ML SYR IVP PRN; +ISOS30TA82 PO; +NIFE-25 PO; +PANT40TA52 PO; +POTA-185 PO; -POTA10CA44 PO; +POTA10CA84 PO; +TICA90TA PO
[2022-11-20 08:04] VITALS: BP 152/78
--- NOTE | 2022-11-20 10:17 | Cardiology Stress Test Report ---
Stress Test Report Date of Procedure/Referring: Date of Procedure: Nov 20, 2022 PCP Jeffrey Byers DO Admitting Physician Admitting Physician: Attending Physician: Jeffrey Byers DO Indications: CP Baseline Vital Signs Vital Signs Date Time Temp Pulse Resp B/P (MAP) Pulse Ox O2 Delivery O2 Flow Rate FiO2 11/20/22 08:04 77 152/78 (102) 99 Summary: Patient receive a resting and stress dose of Myoview, images were acquired and reviewed in the short axis view, horizontal long axis view and vertical long axis view. TID: 1.17 SSS: 2 SDS: 2 EF: 55 Mild decrease uptake at the inferoapical segment with mild reversibility, overall there is no significant ischemia or infarction on SPECT images Normal left ventricular size, ejection fraction 55% Copy Copies To 1: JEFFREY BYERS DO Copies To 2: EFFIE JARAMILLO MD FACP FAC CCDS BESSIE LAZAR MD Nov 20, 2022 10:17
== END ==
LOC: CARD 06:44
PROVIDERS: ATTEND Internal Medicine
DX: I25.10 Atherosclerotic heart disease of native coronary artery without angina pectoris (principal)
CPT/HCPCS: 78452; 93017; A9502